=== PATIENT | female | born 1945 | race Caucasian/White ===

== ENCOUNTER → 2016-05-22 | Outpatient (CLI) | payer MEDICARE, BC | LOC: MW.CHPM 08:00 | PROVIDERS: ATTEND Anesthesiology | DX: G89.4 Chronic pain syndrome (principal); M54.2 Cervicalgia; M50.30 Other cervical disc degeneration, unspecified cervical region; M12.88 Other specific arthropathies, not elsewhere classified, other specified site | CPT/HCPCS: 99214 ==

== ENCOUNTER → 2016-06-11 | Outpatient (CLI) | payer MEDICARE, BC | LOC: MW.CHPS 08:00 | PROVIDERS: ATTEND Plastic Surgery | DX: L82.0 Inflamed seborrheic keratosis (principal); L91.8 Other hypertrophic disorders of the skin | CPT/HCPCS: 11200; 17110 ==

== ENCOUNTER → 2016-07-11 | Outpatient (CLI) | payer MEDICARE, BC ==
--- NOTE | 2016-07-12 20:30 | CR ---
EXAM DATE: 07/11/16 PATIENT'S AGE: 71 Patient: FILIBERTO READ Facility: [place], [place] Site . Site : 1945 Study: XRay Spine Cervical [id number] 10:27:20 AM Ordering Physician: Moises Ennis Final Report: HISTORY: Cervicalgia. Technique: Three views of the cervical spine. Comparison: 04/16/2016. Findings: The dens is grossly intact. There is degenerative disc and joint disease within the cervical spine. There is no acute cervical fracture. Mild anterolisthesis of C3 on C4 like relates to facet joint arthrosis. This finding appears increased from the prior examination. Prevertebral soft tissues within normal limits. Multilevel loss of intervertebral disc height as before. Impression: 1. Degenerative disc and joint disease within the cervical spine. 2. No acute fracture. 3. Mild anterolisthesis of C3 on C4 likely relates to facet joint arthrosis with increase in this listhesis as compared to the prior examination. Dictated by Anthony Townsend MD @ Jul 12 2016 12:41PM (Electronic Signature) Report Signed by Proxy. DONTE
== END ==
LOC: MW.CHFP 16:26
PROVIDERS: ATTEND Emergency Medicine
DX: M54.2 Cervicalgia (principal); M50.30 Other cervical disc degeneration, unspecified cervical region
CPT/HCPCS: 72040; 72040-26

== ENCOUNTER → 2016-07-16 | Outpatient (CLI) | payer MEDICARE, BC | LOC: MW.CHPS 08:00 | PROVIDERS: ATTEND Plastic Surgery | DX: T81.89XA Other complications of procedures, not elsewhere classified, initial encounter (principal) | CPT/HCPCS: G0463 ==

== ENCOUNTER 2017-02-10 16:47 | Emergency (ER) | payer MEDICARE, BC ==
[2017-02-10 17:41] VITALS: BP 147/79
--- NOTE | 2017-02-10 19:29 | EDM.PDOC ---
ED HPI GENERAL MEDICAL PROBLEM - General Chief Complaint: Lower Extremity Injury/Pain Stated Complaint: POSSIBLE BLOOD CLOT LT LEG Time Seen by Provider: 02/10/17 19:15 - History of Present Illness INITIAL COMMENTS - FREE TEXT/NARRATIVE: HISTORY AND PHYSICAL: History of present illness: The patient is a 71-year-old female with a history of hypertension and pulmonary disease who had bilateral knee replacements 15 years ago and presents with pain in her left calf that has been ongoing for the last month that seems to worsen over the last 24 hours. She has not noticed any redness but says that she has intermittent swelling of her foot on that side but not her calf. She has had no trauma to the area has no neurosensory changes or weakness in the leg. She has not noticed any skin changes or lesions. She has no systemic complaints of fever chills chest pain or shortness of breath. Patient is here because of concern of DVT. The patient does have an appointment tomorrow with a provider in our clinic Review of systems: As per history of present illness and below otherwise all systems reviewed and negative. Past medical history: As per history of present illness and as reviewed below otherwise noncontributory. Surgical history: As per history of present illness and as reviewed below otherwise noncontributory. Social history: No reported history of drug or alcohol abuse. Family history: As per history of present illness and as reviewed below otherwise noncontributory. Physical exam: Gen.: Well-developed well-nourished female was nontoxic speaking clearly and easily and in no distress HEENT: Atraumatic, normocephalic, negative for conjunctival pallor or scleral icterus, mucous membranes moist, throat clear, neck supple, nontender, trachea midline. Lungs: Clear to auscultation, breath sounds equal bilaterally, chest nontender. Heart: S1S2, regular rate and rhythm rhythm no overt murmurs Abdomen: Soft, nondistended, nontender. NABS Pelvis: Stable nontender. Genitourinary: Deferred. Rectal: Deferred. Extremities: Atraumatic, negative for cords or calf pain. Neurovascular unremarkable. There is no leg size discrepancy and no evidence of pedal edema redness erythema or ecchymosis to the left lower extremity. The patient is able to dorsi and plantar flex without discomfort and there is no deep tenderness when I palpate the left calf Neuro: Awake, alert, oriented. Cranial nerves II through XII unremarkable. Cerebellum unremarkable. Motor and sensory unremarkable throughout. Exam nonfocal. Diagnostics: Doppler ultrasound of left leg Therapeutics: Patient declined pain medication at this time Impression: Left leg pain Definitive disposition and diagnosis as appropriate pending reevaluation and review of above. left leg Pain Score (Numeric/FACES): 4 - Related Data Allergies Allergy/AdvReac Type Severity Reaction Status Date / Time diphenhydramine HCl Allergy Cannot Verified 02/10/17 17:19 [From Benadryl] Remember morphine Allergy Cannot Verified 02/10/17 17:19 Remember oxycodone [Oxycodone] Allergy Cannot Verified 02/10/17 17:19 Remember tramadol Allergy Cannot Verified 02/10/17 17:19 Remember Home Meds: Home Meds ALPRAZolam [Alprazolam ODT] 0.5 mg PO BEDTIME 02/10/17 [History] Albuterol Sulfate [Proair Respiclick] 90 mcg IH ASDIRECTED 02/10/17 [History] Fluticasone Propionate [Flovent HFA 110 MCG] 110 mcg IH BID 02/10/17 [History] Metoprolol Succinate 25 mg PO DAILY 02/10/17 [History] Past Medical History - Past Health History Medical/Surgical History: Denies Medical/Surgical History Cardiovascular History: Reports: Hypertension [employer] History: Reports: Musculoskeletal History: Reports: Back Pain, Chronic - Past Surgical History GI Surgical History: Reports: Cholecystectomy Female Surgical History: Reports: Section Musculoskeletal Surgical History: Reports: Carpal Tunnel, Knee Replacement, Other (See Below) Other Musculoskeletal Surgeries/Procedures:: neck sx Social & Family History - Family History Family Medical History: Noncontributory - Tobacco Use Smoking Status *Q: Never Smoker - Caffeine Use Caffeine Use: Reports: Coffee Caffeine Use Comment: 2 cups daily - Recreational Drug Use Recreational Drug Use: No Review of Systems - Review of Systems Review Of Systems: ROS reveals no pertinent complaints other than HPI. ED EXAM, GENERAL - Physical Exam Exam: See Below (See dictation) Course - Vital Signs Last Recorded V/S: Last Vital Signs Temp 36.4 C 02/10/17 16:47 Pulse 83 02/10/17 16:47 Resp 18 02/10/17 16:47 BP 147/79 H 02/10/17 16:47 Pulse Ox 96 02/10/17 16:47 - Orders/Labs/Meds Orders: Active Orders 24 hr Category Date Time Status Venous Doppler Lwr Ext Lt [US] Stat Exams 02/10/17 19:21 Taken Departure - Departure Time of Disposition: 20:59 Disposition: Home, Self-Care 01 Condition: Good Clinical Impression: Left leg pain - Discharge Information Referrals: Lance De Leon MD [Primary Care Provider] - Forms: ED Department Discharge Additional Instructions: The following information is given to patients seen in the emergency department who are being discharged to home. This information is to outline your options for follow-up care. We provide all patients seen in our emergency department with a follow-up referral. The need for follow-up, as well as the timing and circumstances, are variable depending upon the specifics of your emergency department visit. If you don't have a primary care physician on staff, we will provide you with a referral. We always advise you to contact your personal physician following an emergency department visit to inform them of the circumstance of the visit and for follow-up with them and/or the need for any referrals to a consulting specialist. The emergency department will also refer you to a specialist when appropriate. This referral assures that you have the opportunity for followup care with a specialist. All of these measure are taken in an effort to provide you with optimal care, which includes your followup. Under all circumstances we always encourage you to contact your private physician who remains a resource for coordinating your care. When calling for followup care, please make the office aware that this follow-up is from your recent emergency room visit. If for any reason you are refused follow-up, please contact the [facility] emergency department at and ask to speak to the emergency department charge nurse. [facility] Primary care- Internal [place] [address] Please keep your appointment tomorrow in the clinic for reevaluation and further care of this problem and return to ER as needed as discussed. Use over- the-counter medications for pain as needed. - My Orders Last 24 Hours: My Active Orders 02/10/17 19:21 Venous Doppler Lwr Ext Lt [US] Stat - Assessment/Plan Last 24 Hours: My Active Orders 02/10/17 19:21 Venous Doppler Lwr Ext Lt [US] Stat
--- NOTE | 2017-02-11 09:56 | US ---
EXAM DATE: 02/10/17 PATIENT'S AGE: 71 Patient: FILIBERTO READ Facility: [place], [place] Site . Site : 1945 Study: US Extremity Venous LEFT [id number]/2017 8:39:56 PM Ordering Physician: Dorcas Newsome Final Report: INDICATION: Left calf pain TECHNIQUE: Left lower extremity venous duplex ultrasound was performed using jalloh-scale ultrasound with and without compression and augmentation. Color Doppler and spectral Doppler exam of the lower extremity veins were obtained. COMPARISON: None FINDINGS: Deep veins: The left common femoral, deep femoral, superficial femoral, popliteal, and visualized calf veins are fully compressible and normal response to mechanical augmentation. The Duplex Doppler waveforms are normal in appearance. The visualized contralateral right common femoral vein is unremarkable in appearance. Superficial veins: The visualized greater saphenous and superficial veins of the leg and calf are unremarkable. Soft tissues: No masses or cysts evident. No adenopathy is seen. IMPRESSION: 1. No sonographic evidence of deep venous thrombosis seen. Dictated by: Albert Lopez MD @ 02/10/2017 20:54:22 (Electronic Signature) Report Signed by Proxy. [facility]
== END 2017-02-10 21:25 | disposition home or self-care (01) ==
LOC: MW.ED 16:47
DX: M79.662 Pain in left lower leg (principal); Z88.5 Allergy status to narcotic agent; Z79.899 Other long term (current) drug therapy; I10 Essential (primary) hypertension; Z96.653 Presence of artificial knee joint, bilateral
CPT/HCPCS: 93971-26-LT; 93971-LT; 99283; 99283-25

== ENCOUNTER 2018-04-16 09:28 | Day surgery (SDC) | payer MEDICARE, BC ==
[~2018-04-16 09:28] MED LIST: Lactated Ringers 1,000 ML IV SCH; Lidocaine 2% 5 ML SDV ONE; Propofol 200 MG/20 ML SDV ONE; Sodium Chloride 0.9% 10 ML Syringe FLUSH PRN; Sodium Chloride 0.9% 2.5 ML Syringe FLUSH PRN; fentaNYL 100 MCG/2 ML SDV ONE
--- NOTE | 2018-04-16 10:31 | PCM.PREANE ---
Preanesthetic Assessment - Anesthesia/Transfusion/Family Hx Anesthesia History: Prior Anesthesia Without Reaction (opioid medications: hydromorphone, morphine, and tramadol make her feel "wild and crazy.") Transfusion History: Unknown - Review of Systems General: No Symptoms Pulmonary: No Symptoms Cardiovascular: No Symptoms Gastrointestinal: No Symptoms Neurological: No Symptoms Other: Reports: None - Physical Assessment O2 Sat by Pulse Oximetry: 99 Respiratory Rate: 16 Vital Signs: Last Vital Signs Temp 36.3 C 04/16/18 09:49 Pulse 67 04/16/18 09:49 Resp 16 04/16/18 09:49 BP 134/78 04/16/18 09:49 Pulse Ox 99 04/16/18 09:49 Height: 1.55 m Weight: 73.028 kg ASA Class: 2 Airway Class: Mallampati = 2 Dentition: Reports: Dentures (upper and lower) ROM/Head Extension: Limited/Partial Lungs: Clear to Auscultation, Normal Respiratory Effort Cardiovascular: Regular Rate, Regular Rhythm - Allergies Allergies/Adverse Reactions: Allergies Allergy/AdvReac Type Severity Reaction Status Date / Time adhesive tape Allergy Redness Verified 04/13/18 08:31 amitriptyline Allergy restlessnes Verified 04/13/18 08:28 s cefuroxime Allergy did not Verified 04/13/18 08:31 work clarithromycin Allergy Itching Verified 04/13/18 09:00 diphenhydramine HCl Allergy Agitation Verified 04/13/18 08:31 [From Benadryl] gabapentin Allergy Cannot Verified 04/13/18 07:58 Remember hydromorphone Allergy Rash Verified 04/13/18 08:31 levofloxacin [From Levaquin] Allergy chest Verified 04/13/18 08:31 tightness/diarrhea montelukast Allergy "makes JERONIMO Verified 04/13/18 09:00 more severe" morphine Allergy "makes my Verified 04/13/18 09:00 skin crawl" oxycodone [Oxycodone] Allergy Cannot Verified 04/13/18 07:57 Remember tramadol Allergy rash/itch Verified 04/13/18 09:00 SMZ-TMP Allergy "my body Uncoded 04/13/18 09:00 is resistant to it" - Acknowledgements Anesthesia Type Planned: MAC (The patient understands and accepts the risks and benefits of MAC. All questions answered. She agrees to proceed, and has consented. ) Pt an Appropriate Candidate for the Planned Anesthesia: Yes Alternatives and Risks of Anesthesia Discussed w Pt/Guardian: Yes Pt/Guardian Understands and Agrees with Anesthesia Plan: Yes PreAnesthesia Questionnaire - Past Health History Medical/Surgical History: Denies Medical/Surgical History HEENT History: Reports: Other (See Below) Other HEENT History: wears glasses, top and bottom partial Cardiovascular History: Reports: Hypertension Other Cardiovascular History: varicose veins Respiratory History: Reports: Asthma (took inhaler yesterday) Other Respiratory History: "mild asthma" Gastrointestinal History: Reports: GERD Other Gastrointestinal History: epigastric pain, Genitourinary History: Reports: None Musculoskeletal History: Reports: Back Pain, Chronic, Neck Pain, Chronic, Osteoarthritis, Other (See Below) Other Musculoskeletal History: DDD, RAPHAEL's to neck Neurological History: Reports: Migraines Other Neuro History: restless legs syndrome-states that her left leg has been hurting, but she denies pain today. Psychiatric History: Reports: Anxiety Endocrine/Metabolic History: Reports: Obesity/BMI 30+ Hematologic History: Reports: Other (See Below) Other Hematologic History: transfusion unknown, may have had one after vaginal delivery Oncologic (Cancer) History: Reports: None Dermatologic History: Reports: None - Past Surgical History Head Surgeries/Procedures: Reports: None HEENT Surgical History: Reports: Cataract Surgery, Naso-Sinus Surgery, Oral Surgery, Tonsillectomy Other HEENT Surgeries/Procedures: dental implants GI Surgical History: Reports: Cholecystectomy, Colonoscopy Female Surgical History: Reports: Breast Biopsy, Section, D&C, Hysterectomy Neurological Surgical History: Reports: C-Spine, Other (See Below) Other Neurological Surgeries/Procedures: neck surgery Musculoskeletal Surgical History: Reports: Arthroscopic Knee, Carpal Tunnel, Joint Replacement, Knee Replacement, Shoulder Surgery, Other (See Below) Other Musculoskeletal Surgeries/Procedures:: salvatore knee replacements, salvatore shoulder replacements , Left foot surgery Oncologic Surgical History: Reports: Biopsy of Breast - SUBSTANCE USE Smoking Status *Q: Never Smoker Tobacco Use Within Last Twelve Months: Other (See Below) (etoh "rare") Recreational Drug Use History: No - HOME MEDS Home Medications: Home Meds Metoprolol Succinate 25 mg PO BEDTIME 02/10/17 [History] Acetaminophen [Tylenol] 1 - 2 tab PO ASDIRECTED PRN 04/13/18 [History] Acetaminophen with Codeine [Acetaminophen-Cod #3] 1 - 2 tab PO ASDIRECTED PRN [History] Albuterol [Ventolin HFA] 1 - 2 puff INH ASDIRECTED PRN 04/13/18 [History] Ascorbate Calcium [Vitamin C] 500 mg PO DAILY 04/13/18 [History] Aspirin 2 tab PO ASDIRECTED PRN 04/13/18 [History] Baclofen 0.5 - 1 tab PO TID PRN 04/13/18 [History] Budesonide/Formoterol Fumarate [Symbicort 160-4.5 Mcg Inhaler] 1 puff INH BID PRN 04/13/18 [History] Calcium Carbonate/Vitamin D3 [Calcium 600-Vit D3 800 Tab] 1 tab PO DAILY [History] Cholecalciferol (Vitamin D3) [Vitamin D3] 1,000 units PO DAILY 04/13/18 [History ] Cranberry Conc/Ascorbic Acid [Cranberry Plus Vitamin C Sftgl] 1 tab PO DAILY 01/19 [History] Diclofenac Sodium [Voltaren 1% Gel] 1 applic TOP ASDIRECTED PRN 04/13/18 [ History] Gelatin 600 mg PO ASDIRECTED 04/13/18 [History] Gluc HCl/Csa/Jesus Hy/Hyalur Ac [Glucosamine Chondroitin] 1 tab PO DAILY [History] Magnesium Oxide 250 mg PO DAILY 04/13/18 [History] Melatonin 5 mg PO BEDTIME 04/13/18 [History] Multivitamin [Multivitamins] 1 tab PO DAILY 04/13/18 [History] Potassium Gluconate [Potassium] 1 tab PO DAILY 04/13/18 [History] Ranitidine HCl 150 mg PO BID 04/13/18 [History] Simethicone [Phazyme] 1 tab PO ASDIRECTED PRN 04/13/18 [History] Sucralfate 1 gm PO TIDMEALS 04/13/18 [History] Turmeric Root Extract [Turmeric Curcumin] 1 tab PO DAILY 04/13/18 [History] Vitamin B Complex 1 tab PO DAILY 04/13/18 [History] Zinc Gluconate [Zinc] 50 mg PO DAILY 04/13/18 [History] clonazePAM [Clonazepam] 1 mg PO BEDTIME PRN 04/13/18 [History] rOPINIRole [Requip] 0.5 mg PO BEDTIME 04/13/18 [History] - CURRENT (IN HOUSE) MEDS Current Meds: Current Medications Lactated Ringer's (Ringers, Lactated) 1,000 mls @ 125 mls/hr IV ASDIRECTED ROSIE Last Admin: 04/16/18 09:59 Dose: 125 mls/hr Sodium Chloride (Saline Flush) 10 ml FLUSH ASDIRECTED PRN PRN Reason: Keep Vein Open Sodium Chloride (Saline Flush) 2.5 ml FLUSH ASDIRECTED PRN PRN Reason: Keep Vein Open Discontinued Medications Fentanyl (Sublimaze) Confirm Administered Dose 100 mcg .ROUTE .STK-MED ONE Stop: 04/16/18 07:38 Lidocaine (Xylocaine-Mpf 2%) Confirm Administered Dose 5 ml .ROUTE .STK-MED ONE Stop: 04/16/18 07:38 Propofol (Diprivan 20 Ml) Confirm Administered Dose 400 mg .ROUTE .STK-MED ONE Stop: 04/16/18 07:38
--- NOTE | 2018-04-16 11:44 | PCM.OPNOTE ---
- General Post-Op/Procedure Note Date of Surgery/Procedure: 04/16/18 Operative Procedure(s): EGD with biopsy Findings: Dilated and somewhat tortuous esophagus but no evidence of inflammation Pre Op Diagnosis: Reflux Post-Op Diagnosis: Same Anesthesia Technique: MAC Condition: Good
--- NOTE | 2018-04-16 12:01 | PCM.POSTAN ---
POST ANESTHESIA ASSESSMENT - MENTAL STATUS Mental Status: Alert, Oriented - RESPIRATORY Respiratory Status: Respiratory Rate WNL, Airway Patent, O2 Saturation Stable - CARDIOVASCULAR CV Status: Pulse Rate WNL, Blood Pressure Stable - GASTROINTESTINAL GI Status: No Symptoms - POST OP HYDRATION Hydration Status: Adequate & Stable - OBSERVATIONS Free Text/Narrative:: The patient tolerated the procedure well. there were no apparent anesthetic complications at this time. discharge home per criteria.
--- NOTE | 2018-04-16 12:24 | PCM48HPAN ---
Post Anesthesia Note - EVALUATION WITHIN 48HRS OF ANESTHETIC Vital Signs in Normal Range: Yes Patient Participated in Evaluation: Yes Respiratory Function Stable: Yes Airway Patent: Yes Cardiovascular Function Stable: Yes Hydration Status Stable: Yes Pain Control Satisfactory: Yes Nausea and Vomiting Control Satisfactory: Yes Mental Status Recovered: Yes Resp Rate: 14 - COMMENTS/OBSERVATIONS Free Text/Narrative:: The patient tolerated the procedure well. Has no complaints at this time. Smiling and wishing everyone a "Happy Harper's Day". Discharge home per criteria.
[2018-04-16 12:59] VITALS: BP 131/88
--- NOTE | 2018-04-17 13:52 | OR ---
SURGEON: DANNA GUARDADO MD DATE OF PROCEDURE: 04/16/2018 PREOPERATIVE DIAGNOSIS: Heartburn. POSTOPERATIVE DIAGNOSIS: Heartburn. PROCEDURE PERFORMED: Diagnostic EGD. ANESTHESIA: MAC. INSTRUMENT USED: Olympus endoscope. EXTENT OF EXAM: Second portion of the duodenum. PREPARATION: Good. LIMITATIONS: None. INDICATION FOR EXAMINATION: The patient is a 72-year-old female who presents with ongoing issues of heartburn. I switched her to Zantac and her symptoms are better, but she continues to have breakthrough intermittently. After discussion of all her options, she decided to proceed with a diagnostic EGD. I explained the procedure, expected perioperative course, and risks including bleeding, infection, or damage to surrounding structures including perforation. The patient verbalized understanding and wishes to proceed. PROCEDURE IN DETAIL: The patient was brought into the endoscopy suite and placed in a beach chair position. A time-out was completed verifying the patient's name, age, date of , allergies, and procedure to be performed. A bite-block was placed in the patient's mouth. Monitored anesthesia care was induced and continuous oxygen was provided via nasal cannula throughout the procedure. After adequate sedation was achieved, a well-lubricated endoscope was placed in the patient's mouth and advanced under direct visualization to the second portion of the duodenum. This appeared normal and a photograph was taken. The scope was then straightened out and fully withdrawn while examining the color, texture, anatomy, and integrity of the mucosa of the upper GI tract. The duodenum appeared normal. The scope was brought into the stomach and a photograph was taken of the pylorus and GE junction, which both appeared anatomically normal. Biopsies were taken of the gastric antrum, body, and fundus and sent for histologic review and H. pylori testing. The gastric mucosa overall appeared normal. The scope was then brought into the distal esophagus and a photograph taken of the Z-line. This appeared normal. A biopsy was taken above the GE junction and sent to pathology, labeled as esophagus. The remainder of the esophagus appeared mildly dilated and tortuous, but otherwise appeared normal. The scope was removed and the procedure terminated. The patient tolerated the procedure well and taken to the PACU in stable condition. ENDOSCOPIC DIAGNOSIS: Grossly normal EGD. RECOMMENDATIONS: Given the slightly dilated appearance of the esophagus, I will have the patient perform an esophagram. I will visit with her in clinic in 2 weeks to discuss the Pathology results and schedule this procedure. CANDICE / GLYNN /[id number]
== END 2018-04-16 12:53 | disposition home or self-care (01) ==
LOC: MW.SDS 09:28
PROVIDERS: ATTEND Surgery
DX: K21.9 Gastro-esophageal reflux disease without esophagitis (principal); K20.9 Esophagitis, unspecified; K29.50 Unspecified chronic gastritis without bleeding; J45.909 Unspecified asthma, uncomplicated; I10 Essential (primary) hypertension; E66.9 Obesity, unspecified; Z68.30 Body mass index [BMI] 30.0-30.9, adult; F41.9 Anxiety disorder, unspecified; Z79.899 Other long term (current) drug therapy; Z88.8 Allergy status to other drugs, medicaments and biological substances; Z88.1 Allergy status to other antibiotic agents; Z88.5 Allergy status to narcotic agent
CPT/HCPCS: 43239; J2001; J2704; J7120; 88305; 88312; J3010

== ENCOUNTER 2018-10-02 15:38 | Emergency (ER) | payer MEDICARE, BC ==
[2018-10-02 16:14] VITALS: BP 151/80; PULSE 65
--- NOTE | 2018-10-02 16:29 | EDM.PDOC ---
ED HPI GENERAL MEDICAL PROBLEM - General Chief Complaint: General Stated Complaint: BROKEN RIB Time Seen by Provider: 10/02/18 16:27 - History of Present Illness INITIAL COMMENTS - FREE TEXT/NARRATIVE: HISTORY AND PHYSICAL: History of present illness: The patient is a 73-year-old female who presents with complaints of left sided rib pain after a fall 4 days ago. The patient says that she was walking on some landscaping material in the garden and fell forward and had her arms outstretched but still managed to hit her left forehead and bend her glasses but she did not pass out or blackout. She says she had a small bruise and abrasion on her left for head and at the left nasal bridge but she had no nausea vomiting headache or neck pain. She said that initially she felt some discomfort in bilateral upper extremities but not in a bony way more intermuscular way. Right after the fall she noticed some discomfort at her left rib area but she did not land on the area or directly impact that area. Since that time she has had more pain with movement and has been trying acetaminophen with codeine that she has at home for her chronic back pain and it has helped. She has no numbness or weakness in her upper extremities no lower extremity complaints and no abdominal pain nausea or vomiting and no midline neck or back pain. Review of systems: As per history of present illness and below otherwise all systems reviewed and negative. Past medical history: As per history of present illness and as reviewed below otherwise noncontributory. Surgical history: As per history of present illness and as reviewed below otherwise noncontributory. Social history: No reported history of drug or alcohol abuse. Family history: As per history of present illness and as reviewed below otherwise noncontributory. Physical exam: General: Well-developed well-nourished female who is nontoxic and vital signs are noted by me HEENT: Atraumatic separate for a small area of soft tissue swelling and abrasion at her left for head near her hairline and a very professional scratch at the left nasal bridge without bony defects or deformities, normocephalic, pupils reactive, negative for conjunctival pallor or scleral icterus, mucous membranes moist, throat clear, neck supple, nontender, trachea midline. There are no midline step-offs tenderness defects of the cervical spine Lungs: Clear to auscultation, breath sounds equal bilaterally, chest wall with some reproducible mild tenderness with palpation of the anterior left ribs underneath the left breast without defects deformities or crepitus Heart: S1S2, regular rate and rhythm no overt murmurs Abdomen: Soft, nondistended, there is no tenderness in the abdomen on palpation more specifically in the left upper quadrant and there is no rebound guarding, bowel sounds are normoactive Negative for masses or hepatosplenomegaly. Negative for costovertebral tenderness. Pelvis: Stable nontender. Genitourinary: Deferred. Rectal: Deferred. Extremities: Atraumatic, negative for cords or calf pain. Neurovascular unremarkable. On palpation of the upper extremities there is no bony defects or deformities and there is no discrete soft tissue swelling or specific area of tenderness. Full range of motion Neuro: Awake, alert, oriented. Cranial nerves II through XII unremarkable. Cerebellum unremarkable. Motor and sensory unremarkable throughout. Exam nonfocal. Back: There are no midline step-offs in his defects of the thoracic or lumbar spine no posterior rib or pelvis tenderness Diagnostics: X-ray left ribs with chest Therapeutics: Toradol 30 mg IM Impression: Fall subacute with musculoskeletal pain and left rib/chest wall pain Definitive disposition and diagnosis as appropriate pending reevaluation and review of above. Left Chest Pain Score (Numeric/FACES): 2 - Related Data Allergies Allergy/AdvReac Type Severity Reaction Status Date / Time adhesive tape Allergy Redness Verified 10/02/18 16:14 amitriptyline Allergy restlessnes Verified 10/02/18 16:14 s cefuroxime Allergy did not Verified 10/02/18 16:14 work clarithromycin Allergy Itching Verified 10/02/18 16:14 diphenhydramine HCl Allergy Agitation Verified 10/02/18 16:14 [From Benadryl] gabapentin Allergy Cannot Verified 10/02/18 16:14 Remember hydromorphone Allergy Rash Verified 10/02/18 16:14 levofloxacin [From Levaquin] Allergy chest Verified 10/02/18 16:14 tightness/diarrhea montelukast Allergy "makes JERONIMO Verified 10/02/18 16:14 more severe" morphine Allergy "makes my Verified 10/02/18 16:14 skin crawl" oxycodone [Oxycodone] Allergy Cannot Verified 10/02/18 16:14 Remember tramadol Allergy rash/itch Verified 10/02/18 16:14 [id number] Allergy "my body Uncoded 10/02/18 16:14 is resistant to it" Home Meds: Home Meds Metoprolol Succinate 25 mg PO BEDTIME 02/10/17 [History] Acetaminophen [Tylenol] 1 - 2 tab PO ASDIRECTED PRN 04/13/18 [History] Acetaminophen with Codeine [Acetaminophen-Cod #3] 1 - 2 tab PO ASDIRECTED PRN [History] Albuterol [Ventolin HFA] 1 - 2 puff INH ASDIRECTED PRN 04/13/18 [History] Ascorbate Calcium [Vitamin C] 500 mg PO DAILY 04/13/18 [History] Aspirin 2 tab PO ASDIRECTED PRN 04/13/18 [History] Baclofen 1.5 - 3 tab PO DAILY PRN 04/13/18 [History] Budesonide/Formoterol Fumarate [Symbicort 160-4.5 Mcg Inhaler] 1 puff INH BID PRN 04/13/18 [History] Calcium Carbonate/Vitamin D3 [Calcium 600-Vit D3 800 Tab] 1 tab PO DAILY [History] Cholecalciferol (Vitamin D3) [Vitamin D3] 1,000 units PO DAILY 04/13/18 [History ] Cranberry Conc/Ascorbic Acid [Cranberry Plus Vitamin C Sftgl] 1 tab PO DAILY 01/19 [History] Diclofenac Sodium [Voltaren 1% Gel] 1 applic TOP ASDIRECTED PRN 04/13/18 [ History] Gelatin 600 mg PO ASDIRECTED 04/13/18 [History] Gluc HCl/Csa/Jesus Hy/Hyalur Ac [Glucosamine Chondroitin] 1 tab PO DAILY [History] Magnesium Oxide 250 mg PO DAILY 04/13/18 [History] Melatonin 5 mg PO BEDTIME 04/13/18 [History] Multivitamin [Multivitamins] 1 tab PO DAILY 04/13/18 [History] Potassium Gluconate [Potassium] 1 tab PO DAILY 04/13/18 [History] Ranitidine HCl 150 mg PO BID 04/13/18 [History] Simethicone [Phazyme] 1 tab PO ASDIRECTED PRN 04/13/18 [History] Sucralfate 1 gm PO TIDMEALS 04/13/18 [History] Turmeric Root Extract [Turmeric Curcumin] 1 tab PO DAILY 04/13/18 [History] Vitamin B Complex 1 tab PO DAILY 04/13/18 [History] Zinc Gluconate [Zinc] 50 mg PO DAILY 04/13/18 [History] clonazePAM [Clonazepam] 1 mg PO BEDTIME PRN 04/13/18 [History] rOPINIRole [Requip] 0.5 mg PO BEDTIME 04/13/18 [History] Past Medical History - Past Health History Medical/Surgical History: Denies Medical/Surgical History HEENT History: Reports: Other (See Below) Other HEENT History: wears glasses, top and bottom partial Cardiovascular History: Reports: Hypertension Other Cardiovascular History: varicose veins Respiratory History: Reports: Asthma Other Respiratory History: "mild asthma" Gastrointestinal History: Reports: GERD Other Gastrointestinal History: epigastric pain, Genitourinary History: Reports: None [employer] History: Reports: Musculoskeletal History: Reports: Back Pain, Chronic, Neck Pain, Chronic, Osteoarthritis, Other (See Below) Other Musculoskeletal History: DDD, RAPHAEL's to neck Neurological History: Reports: Migraines Other Neuro History: restless legs syndrome-states that her left leg has been hurting, but she denies pain today. Psychiatric History: Reports: Anxiety Endocrine/Metabolic History: Reports: Obesity/BMI 30+ Hematologic History: Reports: Other (See Below) Other Hematologic History: transfusion unknown, may have had one after vaginal delivery Oncologic (Cancer) History: Reports: None Dermatologic History: Reports: None - Past Surgical History Head Surgeries/Procedures: Reports: None HEENT Surgical History: Reports: Cataract Surgery, Naso-Sinus Surgery, Oral Surgery, Tonsillectomy Other HEENT Surgeries/Procedures: dental implants GI Surgical History: Reports: Cholecystectomy, Colonoscopy Female Surgical History: Reports: Breast Biopsy, Section, D&C, Hysterectomy Neurological Surgical History: Reports: C-Spine, Other (See Below) Other Neurological Surgeries/Procedures: neck surgery Musculoskeletal Surgical History: Reports: Arthroscopic Knee, Carpal Tunnel, Joint Replacement, Knee Replacement, Shoulder Surgery, Other (See Below) Other Musculoskeletal Surgeries/Procedures:: salvatore knee replacements, salvatore shoulder replacements , Left foot surgery, neck surgery Oncologic Surgical History: Reports: Biopsy of Breast Social & Family History - Family History Family Medical History: Noncontributory - Tobacco Use Smoking Status *Q: Never Smoker - Caffeine Use Caffeine Use: Reports: Coffee Caffeine Use Comment: 2 cups daily - Recreational Drug Use Recreational Drug Use: No ED ROS GENERAL - Review of Systems Review Of Systems: ROS reveals no pertinent complaints other than HPI. ED EXAM, GENERAL - Physical Exam Exam: See Below (See dictation) Course - Vital Signs Last Recorded V/S: Last Vital Signs Temp 36.2 C 10/02/18 16:11 Pulse 65 10/02/18 16:11 Resp 18 10/02/18 16:11 BP 151/80 H 10/02/18 16:11 Pulse Ox 97 10/02/18 16:11 - Orders/Labs/Meds Meds: Medications Discontinued Medications Generic Name Dose Route Start Last Admin Trade Name Shahnaz PRN Reason Stop Dose Admin Ketorolac Tromethamine 30 mg 10/02/18 16:45 10/02/18 16:49 Toradol IM 10/02/18 16:46 30 mg ONETIME ONE Administration Departure - Departure Time of Disposition: 17:19 Disposition: Home, Self-Care 01 Condition: Good Clinical Impression: Left-sided chest wall pain, Musculoskeletal pain - Discharge Information Referrals: PCP,Unknown [Primary Care Provider] - Forms: ED Department Discharge Additional Instructions: The following information is given to patients seen in the emergency department who are being discharged to home. This information is to outline your options for follow-up care. We provide all patients seen in our emergency department with a follow-up referral. The need for follow-up, as well as the timing and circumstances, are variable depending upon the specifics of your emergency department visit. If you don't have a primary care physician on staff, we will provide you with a referral. We always advise you to contact your personal physician following an emergency department visit to inform them of the circumstance of the visit and for follow-up with them and/or the need for any referrals to a consulting specialist. The emergency department will also refer you to a specialist when appropriate. This referral assures that you have the opportunity for followup care with a specialist. All of these measure are taken in an effort to provide you with optimal care, which includes your followup. Under all circumstances we always encourage you to contact your private physician who remains a resource for coordinating your care. When calling for followup care, please make the office aware that this follow-up is from your recent emergency room visit. If for any reason you are refused follow-up, please contact the [facility] emergency department at and ask to speak to the emergency department charge nurse. Primary care- Internal Medicine and Family [address] [address] Use ice alternating with heat to areas of discomfort as you choose and try to add [id number] Aleve/ibuprofen or Motrin to your regimen at home to help with inflammation and pain. Pain and discomfort will improve over the next few days to one week. Please schedule follow-up appointment in the clinic with one of our providers or with your provider for reevaluation and further care Week and return to ER as needed and as discussed
[2018-10-02] MEDS ORDERED: Ketorolac 60 MG/2 ML SDV IM ONE (16:45)
--- NOTE | 2018-10-02 17:03 | CR ---
INDICATION: Left rib pain TECHNIQUE: Chest and four views left ribs COMPARISON: None FINDINGS: Cardiovascular and mediastinum: Normal cardiac size. The aorta is tortuous. Lungs and pleural spaces: Lungs are clear. No sign of infiltrate or mass. No sign of pleural effusion. No pneumothorax. Bones and soft tissues: Detailed oblique images of the left ribs demonstrate no fractures or bone lesions. There is scoliosis of the thoracic spine. Status post bilateral shoulder arthroplasties. IMPRESSION: No rib fracture identified. No pneumothorax. Dictated by Ivanna Dent MD @ Oct 02 2018 5:02PM Signed by Dr. Ivanna Dent @ Oct 02 2018 5:02PM
== END 2018-10-02 17:28 | disposition home or self-care (01) ==
LOC: MW.ED 15:38
DX: S00.01XA Abrasion of scalp, initial encounter (principal); S00.31XA Abrasion of nose, initial encounter; R07.89 Other chest pain; M79.621 Pain in right upper arm; M79.622 Pain in left upper arm; I10 Essential (primary) hypertension; M19.90 Unspecified osteoarthritis, unspecified site; E66.9 Obesity, unspecified; Z68.34 Body mass index [BMI] 34.0-34.9, adult; F41.9 Anxiety disorder, unspecified; Z88.8 Allergy status to other drugs, medicaments and biological substances; Z88.5 Allergy status to narcotic agent; Z88.6 Allergy status to analgesic agent; Z88.1 Allergy status to other antibiotic agents; Z79.810 Long term (current) use of selective estrogen receptor modulators (SERMs); Z79.899 Other long term (current) drug therapy; W19.XXXA Unspecified fall, initial encounter
CPT/HCPCS: 71101; 96372; 99283; J1885

== ENCOUNTER 2019-01-19 15:39 | Emergency (ER) | payer MEDICARE, BC ==
--- NOTE | 2019-01-19 15:56 | EDM.PDOC ---
ED HPI GENERAL MEDICAL PROBLEM - General Chief Complaint: Trauma Stated Complaint: FALL Time Seen by Provider: 01/19/19 15:50 Source of Information: Reports: Patient History Limitations: Reports: No Limitations - History of Present Illness INITIAL COMMENTS - FREE TEXT/NARRATIVE: HISTORY AND PHYSICAL: History of present illness: Patient is a 73-year-old female who presents to the ED today with concern of head injury that occurred approximately 1 hour ago. Patient states she was walking outside and missed a step and fell and hit her forehead. Patient states she is unsure if she lost consciousness. Patient states she does take a daily aspirin. Patient states she is also having left hand pain, right shoulder pain, and right forearm pain. Patient denies fever, chills, chest pain, shortness of breath, or cough. Denies headache, neck stiff ness, change in vision. Denies nausea, vomiting, abdominal pain, diarrhea, constipation, or dysuria. Has not noted any blood in urine or stool. Patient has been eating and drinking appropriately. Review of systems: As per history of present illness and below otherwise all systems reviewed and negative. Past medical history: As per history of present illness and as reviewed below otherwise noncontributory. Surgical history: As per history of present illness and as reviewed below otherwise noncontributory. Social history: See social history for further information Family history: As per history of present illness and as reviewed below otherwise noncontributory. Physical exam: General: Patient is alert, oriented, and in no acute distress. Patient laying comfortably on exam table. HEENT: Atraumatic, normocephalic, pupils equal and reactive bilaterally, negative for conjunctival pallor or scleral icterus, mucous membranes moist, TMs normal bilaterally, throat clear, neck supple, nontender, trachea midline. No drooling or trismus noted. No meningeal signs. No hot potato voice noted. There is a 2-3 cm hematoma of the right forehead. There is also a superficial abrasion of the distal nose without bleeding. Lungs: Clear to auscultation, breath sounds equal bilaterally, chest nontender. Heart: S1S2, regular rate and rhythm without overt murmur Abdomen: Soft, nondistended, nontender. Negative for masses or hepatosplenomegaly. Negative for costovertebral tenderness. Pelvis: Stable nontender. Genitourinary: Deferred. Rectal: Deferred. Skin: See HEENT. Otherwise, Intact, warm, dry. No lesions or rashes noted. Extremities: Negative for cords or calf pain. Neurovascular unremarkable. Left hand is mildly edematous over the 4th digit with limited ROM of the fourth digit due to pain. Patient has full range of motion of the remainder of left upper extremity. Radial pulses grossly intact with capillary refill less than 2 seconds. Patient has complete range of motion of the right upper extremity without pain or difficulty. Radial pulses grossly intact with capillary refill less than 2 seconds of the right upper extremity. Patient has full range of motion of complete bilateral lower extremities without pain or difficulty. dp/ pt intact bilaterally with cap refill <2 seconds. No obvious deformity spine. No step-offs, crepitus, or point tenderness to palpation of the spinous process to complete spine. Neuro: Awake, alert, oriented. Cranial nerves II through XII unremarkable. Cerebellum unremarkable. Motor and sensory unremarkable throughout. Exam nonfocal. Notes: Trauma alert was called upon arrival to the ED. Dr. Hernandez directly involved in patient care. Cervical collar was placed upon arrival to the ED. Discussed the importance for follow-up with the orthopedic provider as well as her primary care provider. Voices understanding and is agreeable to plan of care. Denies any further questions or concerns at this time. Diagnostics: Head CT, cervical spine CT, chest x-ray, pelvic x-ray, shoulder XR, left hand x- ray, right forearm x-ray, CBC, CMP, UA, EKG, troponin, PT/INR Therapeutics: ulnar gutter splint Prescription: None (pain medication offered but patient declines) Impression: Head injury Left proximal phalanx fracture, 4th digit Plan: 1. Rest, ice, elevate the affected extremity. You can apply ice 15 minutes on, 15 minutes off. Leave splint on until follow-up with the orthopedic provider. 2. Tylenol and/or Ibuprofen as directed for pain management or discomfort. 3. Follow up with the Orthopedic provider and primary care provider as discussed. Return to the ED as needed and as discussed. Definitive disposition and diagnosis as appropriate pending reevaluation and review of above. head Pain Score (Numeric/FACES): 9 - Related Data Allergies Allergy/AdvReac Type Severity Reaction Status Date / Time adhesive tape Allergy Redness Verified 01/19/19 15:47 amitriptyline Allergy restlessnes Verified 01/19/19 15:47 s cefuroxime Allergy did not Verified 01/19/19 15:47 work clarithromycin Allergy Itching Verified 01/19/19 15:47 diphenhydramine HCl Allergy Agitation Verified 01/19/19 15:47 [From Benadryl] gabapentin Allergy Cannot Verified 01/19/19 15:47 Remember hydromorphone Allergy Rash Verified 01/19/19 15:47 levofloxacin [From Levaquin] Allergy chest Verified 01/19/19 15:47 tightness/diarrhea montelukast Allergy "makes JERONIMO Verified 01/19/19 15:47 more severe" morphine Allergy "makes my Verified 01/19/19 15:47 skin crawl" oxycodone [Oxycodone] Allergy Cannot Verified 01/19/19 15:47 Remember tramadol Allergy rash/itch Verified 01/19/19 15:47 SMZ-TMP Allergy "my body Uncoded 10/02/18 16:14 is resistant to it" Home Meds: Home Meds Metoprolol Succinate 25 mg PO BID 02/10/17 [History] Acetaminophen [Tylenol] 1 - 2 tab PO ASDIRECTED PRN 04/13/18 [History] Acetaminophen with Codeine [Acetaminophen-Cod #3] 1 - 2 tab PO ASDIRECTED PRN [History] Albuterol [Ventolin HFA] 1 - 2 puff INH ASDIRECTED PRN 04/13/18 [History] Ascorbate Calcium [Vitamin C] 500 mg PO DAILY 04/13/18 [History] Aspirin 1 tab PO ASDIRECTED PRN 04/13/18 [History] Baclofen 1.5 - 3 tab PO DAILY PRN 04/13/18 [History] Calcium Carbonate/Vitamin D3 [Calcium 600-Vit D3 800 Tab] 1 tab PO DAILY [History] Cholecalciferol (Vitamin D3) [Vitamin D3] 1,000 units PO DAILY 04/13/18 [History ] Cranberry Conc/Ascorbic Acid [Cranberry Plus Vitamin C Sftgl] 1 tab PO DAILY 01/19 [History] Diclofenac Sodium [Voltaren 1% Gel] 1 applic TOP ASDIRECTED PRN 04/13/18 [ History] Gelatin 600 mg PO ASDIRECTED 04/13/18 [History] Glucosam/Chond/Collagen/Hyalur [Glucosamine Chondroitin] 1 tab PO DAILY [History] Magnesium Oxide 250 mg PO DAILY 04/13/18 [History] Melatonin 5 mg PO BEDTIME 04/13/18 [History] Multivitamin [Multivitamins] 1 tab PO DAILY 04/13/18 [History] Potassium Gluconate [Potassium] 1 tab PO DAILY 04/13/18 [History] Ranitidine HCl 150 mg PO BID 04/13/18 [History] Simethicone [Phazyme] 1 tab PO ASDIRECTED PRN 04/13/18 [History] Sucralfate 1 gm PO TIDMEALS 04/13/18 [History] Turmeric Root Extract [Turmeric Curcumin] 1 tab PO DAILY 04/13/18 [History] Vitamin B Complex 1 tab PO DAILY 04/13/18 [History] Zinc Gluconate [Zinc] 50 mg PO DAILY 04/13/18 [History] clonazePAM [Clonazepam] 1 mg PO BEDTIME PRN 04/13/18 [History] rOPINIRole [Requip] 0.5 mg PO BEDTIME 04/13/18 [History] Past Medical History - Past Health History Medical/Surgical History: Denies Medical/Surgical History HEENT History: Reports: Other (See Below) Other HEENT History: wears glasses, top and bottom partial Cardiovascular History: Reports: Hypertension Other Cardiovascular History: varicose veins Respiratory History: Reports: Asthma Other Respiratory History: "mild asthma" Gastrointestinal History: Reports: GERD Other Gastrointestinal History: epigastric pain, Genitourinary History: Reports: None 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 Psychiatric History: Reports: Anxiety Endocrine/Metabolic History: Reports: Obesity/BMI 30+ Hematologic History: Reports: Other (See Below) Other Hematologic History: transfusion unknown, may have had one after vaginal delivery Oncologic (Cancer) History: Reports: None Dermatologic History: Reports: None - Past Surgical History Head Surgeries/Procedures: Reports: None HEENT Surgical History: Reports: Cataract Surgery, Naso-Sinus Surgery, Oral Surgery, Tonsillectomy Other HEENT Surgeries/Procedures: dental implants GI Surgical History: Reports: Cholecystectomy, Colonoscopy Female Surgical History: Reports: Breast Biopsy, Section, D&C, Hysterectomy Neurological Surgical History: Reports: C-Spine, Other (See Below) Other Neurological Surgeries/Procedures: neck surgery Musculoskeletal Surgical History: Reports: Arthroscopic Knee, Carpal Tunnel, Joint Replacement, Knee Replacement, Shoulder Surgery, Other (See Below) Other Musculoskeletal Surgeries/Procedures:: salvatore knee replacements, salvatore shoulder replacements , Left foot surgery, neck surgery Oncologic Surgical History: Reports: Biopsy of Breast Social & Family History - Family History Family Medical History: Noncontributory - Caffeine Use Caffeine Use: Reports: Coffee Caffeine Use Comment: 2 cups daily Review of Systems - Review of Systems Review Of Systems: Comprehensive ROS is negative, except as noted in HPI. ED EXAM, GENERAL - Physical Exam Exam: See Below (See dictation) Course - Vital Signs Last Recorded V/S: Last Vital Signs Temp 96.7 F 01/19/19 15:39 Pulse 71 01/19/19 15:39 Resp 18 01/19/19 15:39 BP 145/89 H 01/19/19 15:39 Pulse Ox 98 01/19/19 15:39 - Orders/Labs/Meds Orders: Active Orders 24 hr Category Date Time Status EKG Documentation Completion [RC] STAT Care 01/19/19 15:51 Active Labs: Laboratory Tests 01/19/19 01/19/19 01/19/19 Range/Units 16:46 17:20 17:20 WBC 5.83 (4.0-11.0) K/uL RBC 4.45 (4.30-5.90) M/uL Hgb 13.0 (12.0-16.0) g/dL Hct 37.8 (36.0-46.0) % MCV 84.9 (80.0-98.0) fL MCH 29.2 (27.0-32.0) pg MCHC 34.4 (31.0-37.0) g/dL RDW Std Deviation 42.1 (28.0-62.0) fl RDW Coeff of Brynn 14 (11.0-15.0) % Plt Count 190 (150-400) K/uL MPV 9.50 (7.40-12.00) fL Neut % (Auto) 63.5 (48.0-80.0) % Lymph % (Auto) 21.6 (16.0-40.0) % Maries % (Auto) 10.3 (0.0-15.0) % Eos % (Auto) 4.3 (0.0-7.0) % Baso % (Auto) 0.3 (0.0-1.5) % Neut # (Auto) 3.7 (1.4-5.7) K/uL Lymph # (Auto) 1.3 (0.6-2.4) K/uL Maries # (Auto) 0.6 (0.0-0.8) K/uL Eos # (Auto) 0.3 (0.0-0.7) K/uL Baso # (Auto) 0.0 (0.0-0.1) K/uL Nucleated RBC % 0.0 /100WBC Nucleated RBCs # 0 K/uL INR 0.99 Sodium (136-145) mmol/L Potassium (3.5-5.1) mmol/L Chloride (98-107) mmol/L Carbon Dioxide (21.0-32.0) mmol/L BUN (7.0-18.0) mg/dL Creatinine (0.6-1.0) mg/dL Est Cr Clr Drug Dosing mL/min Estimated GFR (MDRD) ml/min Glucose (74-106) mg/dL Calcium (8.5-10.1) mg/dL Total Bilirubin (0.2-1.0) mg/dL AST (15-37) IU/L ALT (14-63) IU/L Alkaline Phosphatase (46-116) U/L Troponin I (0.000-0.056) ng/mL Total Protein (6.4-8.2) g/dL Albumin (3.4-5.0) g/dL Globulin (2.6-4.0) g/dL Albumin/Globulin Ratio (0.9-1.6) Urine Color YELLOW Urine Appearance CLEAR Urine pH 7.0 (5.0-8.0) Ur Specific [place] 1.010 (1.001-1.035) Urine Protein NEGATIVE (NEGATIVE) mg/dL Urine Glucose (UA) NEGATIVE (NEGATIVE) mg/dL Urine Ketones NEGATIVE (NEGATIVE) mg/dL Urine Occult Blood NEGATIVE (NEGATIVE) Urine Nitrite NEGATIVE (NEGATIVE) Urine Bilirubin NEGATIVE (NEGATIVE) Urine Urobilinogen 0.2 (<2.0) EU/dL Ur Leukocyte Esterase NEGATIVE (NEGATIVE) 01/19/19 Range/Units 17:20 WBC (4.0-11.0) K/uL RBC (4.30-5.90) M/uL Hgb (12.0-16.0) g/dL Hct (36.0-46.0) % MCV (80.0-98.0) fL MCH (27.0-32.0) pg MCHC (31.0-37.0) g/dL RDW Std Deviation (28.0-62.0) fl RDW Coeff of Brynn (11.0-15.0) % Plt Count (150-400) K/uL MPV (7.40-12.00) fL Neut % (Auto) (48.0-80.0) % Lymph % (Auto) (16.0-40.0) % Maries % (Auto) (0.0-15.0) % Eos % (Auto) (0.0-7.0) % Baso % (Auto) (0.0-1.5) % Neut # (Auto) (1.4-5.7) K/uL Lymph # (Auto) (0.6-2.4) K/uL Maries # (Auto) (0.0-0.8) K/uL Eos # (Auto) (0.0-0.7) K/uL Baso # (Auto) (0.0-0.1) K/uL Nucleated RBC % /100WBC Nucleated RBCs # K/uL INR Sodium 139 (136-145) mmol/L Potassium 3.5 (3.5-5.1) mmol/L Chloride 101 (98-107) mmol/L Carbon Dioxide 29.9 (21.0-32.0) mmol/L BUN 19 H (7.0-18.0) mg/dL Creatinine 0.6 (0.6-1.0) mg/dL Est Cr Clr Drug Dosing 59.09 mL/min Estimated GFR (MDRD) > 60.0 ml/min Glucose 98 (74-106) mg/dL Calcium 9.4 (8.5-10.1) mg/dL Total Bilirubin 0.4 (0.2-1.0) mg/dL AST 21 (15-37) IU/L ALT 24 (14-63) IU/L Alkaline Phosphatase 95 (46-116) U/L Troponin I < 0.050 (0.000-0.056) ng/mL Total Protein 7.8 (6.4-8.2) g/dL Albumin 4.1 (3.4-5.0) g/dL Globulin 3.7 (2.6-4.0) g/dL Albumin/Globulin Ratio 1.1 (0.9-1.6) Urine Color Urine Appearance Urine pH (5.0-8.0) Ur Specific [place] (1.001-1.035) Urine Protein (NEGATIVE) mg/dL Urine Glucose (UA) (NEGATIVE) mg/dL Urine Ketones (NEGATIVE) mg/dL Urine Occult Blood (NEGATIVE) Urine Nitrite (NEGATIVE) Urine Bilirubin (NEGATIVE) Urine Urobilinogen (<2.0) EU/dL Ur Leukocyte Esterase (NEGATIVE) Departure - Departure Time of Disposition: 18:17 Disposition: Home, Self-Care 01 Clinical Impression: Head injury Qualifiers: Encounter type: initial encounter Qualified Code(s): S09.90XA - Unspecified injury of head, initial encounter Proximal phalanx fracture of finger Qualifiers: Encounter type: initial encounter Finger: ring finger Fracture type: closed Fracture alignment: nondisplaced Laterality: left Qualified Code(s): S62.645A - Nondisplaced fracture of proximal phalanx of left ring finger, initial encounter for closed fracture - Discharge Information Referrals: Lance De Leon MD [Primary Care Provider] - Forms: ED Department Discharge Additional Instructions: The following information is given to patients seen in the emergency department who are being discharged to home. This information is to outline your options for follow-up care. We provide all patients seen in our emergency department with a follow-up referral. The need for follow-up, as well as the timing and circumstances, are variable depending upon the specifics of your emergency department visit. If you don't have a primary care physician on staff, we will provide you with a referral. We always advise you to contact your personal physician following an emergency department visit to inform them of the circumstance of the visit and for follow-up with them and/or the need for any referrals to a consulting specialist. The emergency department will also refer you to a specialist when appropriate. This referral assures that you have the opportunity for follow-up care with a specialist. All of these measure are taken in an effort to provide you with optimal care, which includes your follow-up. Under all circumstances we always encourage you to contact your private physician who remains a resource for coordinating your care. When calling for follow-up care, please make the office aware that this follow-up is from your recent emergency room visit. If for any reason you are refused follow-up, please contact the [facility] Emergency Department at and asked to speak to the emergency department charge nurse. [facility] [address] [place] [id number] [address] [facility] Professional Building [address], [address] [place] [address] Dr Cole, Orthopedist [facility] [address] [place] [address] Dr Valdez - Dr Johnson - Dr Gomez [facility] [address] [place] [address] [facility] [address] [place] [address] 1. Rest, ice, elevate the affected extremity. You can apply ice 15 minutes on, 15 minutes off. Leave splint on until follow-up with the orthopedic provider. 2. Tylenol and/or Ibuprofen as directed for pain management or discomfort. 3. Follow up with the Orthopedic provider and primary care provider as discussed. Return to the ED as needed and as discussed. - My Orders Last 24 Hours: My Active Orders 01/19/19 15:51 EKG Documentation Completion [RC] STAT - Assessment/Plan Last 24 Hours: My Active Orders 01/19/19 15:51 EKG Documentation Completion [RC] STAT
--- NOTE | 2019-01-19 16:32 | CT ---
EXAM DATE: 01/19/19 PATIENT'S AGE: 73 CT cervical spine Technique: Multiple axial sections were obtained from above C1 inferiorly through the bottom of T4. Reconstructed sagittal and coronal images were obtained. Comparison: No prior cervical spine imaging. Findings: Anterior plate and screws are seen at C3-4 and C4-5. Severe disc space narrowing is noted at C5-6, C6-7 and C7-T1. Moderate to severe disc space narrowing noted at T1-2 through T3-4. Diffuse anterior endplate osteophytes are seen as well as mild diffuse posterior osteophytes. Degenerative change is scattered throughout the apophyseal joints. Slightly abnormal cervical curvature is seen which is felt to be degenerative in etiology. Scattered areas of neural foraminal narrowing or is seen. No fracture is appreciated. No abnormal subluxation is seen. Visualized lung apices are clear. Calcified nodule is seen within the thyroid gland measuring 1.1 cm which is felt to be incidental. No soft tissue abnormalities are otherwise seen within the visualized neck. Impression: 1. Previous surgery. Diffuse degenerative change. 2. Other findings which are believed to be incidental. 3. No acute finding is seen on CT study of the cervical spine. Diagnostic code #[address]
--- NOTE | 2019-01-19 16:34 | CT ---
EXAM DATE: 01/19/19 PATIENT'S AGE: [address] Technique: Multiple axial sections through the brain were obtained. Intravenous contrast was not utilized. Comparison: Prior head CT study of 08/07/06. Findings: Mild soft tissue swelling is seen within the right frontal scalp. Ventricles along with basal cisterns and sulci over the convexities are mildly prominent. No abnormal parenchymal densities are seen. No evidence of intracranial hemorrhage. No midline shift or mass effect is seen. Bone window settings were reviewed which shows no acute calvarial abnormality. No acute paranasal sinus findings are seen. Mastoid sinuses are clear. Impression: 1. Soft tissue swelling within the right frontal scalp. 2. Mild generalized atrophy. 3. No acute intracranial finding is seen. Diagnostic code #2 Report Signed by Proxy. DONTE
--- NOTE | 2019-01-19 17:08 | CR ---
Indication: Fall. Technique: An AP view of the pelvis was obtained. Comparison: None Findings: Both femoral heads are seated within the acetabula. Degenerative changes of the lower lumbar spine and both hips are identified. No fracture or subluxation is identified. Impression: Degenerative change. Dictated by Margarita Henriquez MD @ Jan 19 2019 5:07PM Signed by Dr. Margarita Henriquez @ Jan 19 2019 5:08PM
--- NOTE | 2019-01-19 17:08 | CR ---
Indication: Fall. Technique: Three views of the left hand were obtained. Comparison: None Findings: An oblique fracture of the proximal phalanx of the left 4th finger is identified. Degenerative changes are identified throughout the left hand. No other fractures are identified. Impression: Fracture the proximal phalanx of the left 4th finger Dictated by Margarita Henriquez MD @ Jan 19 2019 5:05PM Signed by Dr. Margarita Henriquez @ Jan 19 2019 5:06PM
--- NOTE | 2019-01-19 17:08 | CR ---
Indication: Fall. Technique: Two views of the right forearm were obtained. Comparison: None Findings: Degenerative changes of the wrist and the elbow are identified. No acute fracture or subluxation is identified. Impression: No acute fracture. Dictated by Margarita Henriquez MD @ Jan 19 2019 5:06PM Signed by Dr. Margarita Henriquez @ Jan 19 2019 5:07PM
--- NOTE | 2019-01-19 17:10 | CR ---
Indication: Fall Technique: Chest 1 view Comparison: None Findings/Impression: Normal cardiac size. Tortuous aorta. Normal pulmonary vasculature. Scattered pulmonary nodules may be secondary to calcified granulomata. No pneumothorax or effusion. Status post bilateral reverse shoulder arthroplasties. Mild dextroscoliosis of the lower thoracic spine. Surgical clips in the right upper quadrant. No acute fracture. Dictated by Ivanna Dent MD @ Jan 19 2019 5:09PM Signed by Dr. Ivanna Dent @ Jan 19 2019 5:09PM
--- NOTE | 2019-01-19 17:15 | CR ---
Indication: Fall Technique: Three views right shoulder Comparison: None Findings/impression: Note that the shoulder images are currently in the chest radiograph folder from the same date. Status post reverse right shoulder arthroplasty. No hardware complication, fracture, or subluxation identified. Calcified granulomata in the right lung. Plate and screw hardware in the lower cervical spine. Dictated by Ivanna Dent MD @ Jan 19 2019 5:12PM Signed by Dr. Ivanna Dent @ Jan 19 2019 5:12PM
[2019-01-19 18:01] LABS: BLOOD UREA NITROGEN,BUN 19 mg/dL (7.0-18.0); CARBON DIOXIDE,CO2 29.9 mmol/L (21.0-32.0); CHLORIDE,CL 101 mmol/L (98-107); GLUCOSE RANDOM 98 mg/dL (74-106); POTASSIUM,K 3.5 mmol/L (3.5-5.1); SODIUM,NA 139 mmol/L (136-145)
[2019-01-19 18:42] VITALS: BP 145/79; PULSE 77
== END 2019-01-19 18:37 | disposition home or self-care (01) ==
LOC: MW.ED 15:39
DX: S09.90XA Unspecified injury of head, initial encounter (principal); S62.645A Nondisplaced fracture of proximal phalanx of left ring finger, initial encounter for closed fracture; S00.83XA Contusion of other part of head, initial encounter; S00.31XA Abrasion of nose, initial encounter; I10 Essential (primary) hypertension; J45.909 Unspecified asthma, uncomplicated; F41.9 Anxiety disorder, unspecified; E66.9 Obesity, unspecified; Z68.34 Body mass index [BMI] 34.0-34.9, adult; Z91.09 Other allergy status, other than to drugs and biological substances; Z88.8 Allergy status to other drugs, medicaments and biological substances; Z88.1 Allergy status to other antibiotic agents; Z88.5 Allergy status to narcotic agent; Z88.6 Allergy status to analgesic agent; Z79.82 Long term (current) use of aspirin; Z79.899 Other long term (current) drug therapy; W01.10XA Fall on same level from slipping, tripping and stumbling with subsequent striking against unspecified object, initial encounter; Y92.009 Unspecified place in unspecified non-institutional (private) residence as the place of occurrence of the external cause; Y93.01 Activity, walking, marching and hiking
CPT/HCPCS: 36415; 70450; 70450-26; 71045; 71045-26; 72125; 72125-26; 72170; 72170-26; 73030-26-RT; 73030-RT; 73090-26-RT; 73090-RT; 73130-26-LT; 73130-LT; 80053; 81003; 84484; 85025; 85610; 93005; 99284-25

== ENCOUNTER 2019-03-29 11:06 | Emergency (ER) | payer MEDICARE, BC ==
--- NOTE | 2019-03-29 12:45 | EDM.PDOC ---
ED HPI GENERAL MEDICAL PROBLEM - General Chief Complaint: Upper Extremity Injury/Pain Stated Complaint: FELL LEFT HAND INJURY Time Seen by Provider: 03/29/19 12:41 Source of Information: Reports: Patient - History of Present Illness INITIAL COMMENTS - FREE TEXT/NARRATIVE: HISTORY AND PHYSICAL: History of present illness: [Patient presents post fall landing on her hand, she has history of fracture of the fourth digit on the left, she has bruising and swelling to the lateral hand as well as pain concerning the fourth digit no head injury or loss of consciousness no other pain or injury per patient no fever nausea vomiting chills sweats ] Review of systems: As per history of present illness and below otherwise all systems reviewed and negative. Past medical history: As per history of present illness and as reviewed below otherwise noncontributory. Surgical history: As per history of present illness and as reviewed below otherwise noncontributory. Social history: No reported history of drug or alcohol abuse. Family history: As per history of present illness and as reviewed below otherwise noncontributory. Physical exam: HEENT: Atraumatic, normocephalic, pupils reactive, negative for conjunctival pallor or scleral icterus, mucous membranes moist, throat clear, neck supple, nontender, trachea midline. Lungs: Clear to auscultation, breath sounds equal bilaterally, chest nontender. Heart: S1S2, regular, negative for clicks, rubs, or JVD. Abdomen: Soft, nondistended, nontender. Negative for masses or hepatosplenomegaly. Negative for costovertebral tenderness. Pelvis: Stable nontender. Genitourinary: Deferred. Rectal: Deferred. Extremities: Atraumatic, negative for cords or calf pain. Neurovascular unremarkable. Neuro: Awake, alert, oriented. Cranial nerves II through XII unremarkable. Cerebellum unremarkable. Motor and sensory unremarkable throughout. Exam nonfocal. Diagnostics: [Left hand 3 views ] Therapeutics: [None I will #3 Follow-up with orthopedist] Impression: [Closed fracture left fourth digit] Definitive disposition and diagnosis as appropriate pending reevaluation and review of above. Left Hand Pain Score (Numeric/FACES): 8 - Related Data Allergies Allergy/AdvReac Type Severity Reaction Status Date / Time adhesive tape Allergy Redness Verified 03/29/19 11:45 amitriptyline Allergy restlessnes Verified 03/29/19 11:45 s cefuroxime Allergy did not Verified 03/29/19 11:45 work clarithromycin Allergy Itching Verified 03/29/19 11:45 diphenhydramine HCl Allergy Agitation Verified 03/29/19 11:45 [From Benadryl] gabapentin Allergy Cannot Verified 03/29/19 11:45 Remember hydromorphone Allergy Rash Verified 03/29/19 11:45 levofloxacin [From Levaquin] Allergy chest Verified 03/29/19 11:45 tightness/diarrhea montelukast Allergy "makes JERONIMO Verified 03/29/19 11:45 more severe" morphine Allergy "makes my Verified 03/29/19 11:45 skin crawl" oxycodone [Oxycodone] Allergy Cannot Verified 03/29/19 11:45 Remember tramadol Allergy rash/itch Verified 03/29/19 11:45 [id number]-TMP Allergy "my body Uncoded 03/29/19 11:45 is resistant to it" Home Meds: Home Meds Metoprolol Succinate 50 mg PO DAILY 02/10/17 [History] Acetaminophen [Tylenol] 325 - 650 mg PO Q6H PRN 04/13/18 [History] Acetaminophen with Codeine [Acetaminophen-Cod #3] 1 tab PO Q4H PRN 04/13/18 [ History] Albuterol [Ventolin HFA] 1 - 2 puff INH Q4H PRN 04/13/18 [History] Aspirin 325 mg PO Q4H PRN 04/13/18 [History] Calcium Carbonate/Vitamin D3 [Calcium 600-Vit D3 800 Tab] 500 mg PO TID [History] Cholecalciferol (Vitamin D3) [Vitamin D3] 3,000 units PO DAILY 04/13/18 [History ] Diclofenac Sodium [Voltaren 1% Gel] 1 applic TOP QID PRN 04/13/18 [History] Magnesium Oxide 400 mg PO DAILY 04/13/18 [History] Melatonin 5 mg PO BEDTIME 04/13/18 [History] Multivitamin [Multivitamins] 1 tab PO DAILY 04/13/18 [History] Potassium Gluconate [Potassium] 99 mg PO DAILY 04/13/18 [History] Sucralfate 1 gm PO TIDMEALS 04/13/18 [History] Vitamin B Complex 1 tab PO DAILY 04/13/18 [History] Zinc Gluconate [Zinc] 50 mg PO DAILY 04/13/18 [History] clonazePAM [Clonazepam] 1 mg PO BEDTIME PRN 04/13/18 [History] rOPINIRole [Requip] 0.5 mg PO BEDTIME 04/13/18 [History] Gelatin 2,600 mg PO DAILY 03/29/19 [History] Methyl Salicylate/Menthol [Icy Hot] 1 applic TOP QID PRN 03/29/19 [History] [place]-3 Fatty Acids/Fish Oil [Fish Oil 1,000 mg Softgel] 5,000 unit PO DAILY [History] Omeprazole 40 mg PO DAILY 03/29/19 [History] Past Medical History - Past Health History Medical/Surgical History: Denies Medical/Surgical History HEENT History: Reports: Other (See Below) Other HEENT History: wears glasses, top and bottom partial Cardiovascular History: Reports: Hypertension Other Cardiovascular History: varicose veins Respiratory History: Reports: Asthma Other Respiratory History: "mild asthma" Gastrointestinal History: Reports: GERD Other Gastrointestinal History: epigastric pain, Genitourinary History: Reports: None 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 Psychiatric History: Reports: Anxiety Endocrine/Metabolic History: Reports: Obesity/BMI 30+ Hematologic History: Reports: Other (See Below) Other Hematologic History: transfusion unknown, may have had one after vaginal delivery Immunologic History: Reports: None Oncologic (Cancer) History: Reports: None Dermatologic History: Reports: None - Infectious Disease History Infectious Disease History: Reports: Chicken Pox, Measles, Mumps - Past Surgical History Head Surgeries/Procedures: Reports: None HEENT Surgical History: Reports: Cataract Surgery, Naso-Sinus Surgery, Oral Surgery, Tonsillectomy Other HEENT Surgeries/Procedures: dental implants GI Surgical History: Reports: Cholecystectomy, Colonoscopy Female Surgical History: Reports: Breast Biopsy, Section, D&C, Hysterectomy Neurological Surgical History: Reports: C-Spine, Other (See Below) Other Neurological Surgeries/Procedures: neck surgery Musculoskeletal Surgical History: Reports: Arthroscopic Knee, Carpal Tunnel, Joint Replacement, Knee Replacement, Shoulder Surgery, Other (See Below) Other Musculoskeletal Surgeries/Procedures:: salvatore knee replacements, salvatore shoulder replacements , Left foot surgery, neck surgery Oncologic Surgical History: Reports: Biopsy of Breast Social & Family History - Family History Family Medical History: Noncontributory - Tobacco Use Smoking Status *Q: Never Smoker Second Hand Smoke Exposure: No - Caffeine Use Caffeine Use: Reports: None Caffeine Use Comment: 2 cups daily - Recreational Drug Use Recreational Drug Use: No Review of Systems - Review of Systems Review Of Systems: See Below ED EXAM, GENERAL - Physical Exam Exam: See Below Course - Vital Signs Last Recorded V/S: Last Vital Signs Temp 96.5 F 03/29/19 11:45 Pulse 71 03/29/19 11:45 Resp 16 03/29/19 11:45 BP 149/84 H 03/29/19 11:45 Pulse Ox 97 03/29/19 11:45 - Orders/Labs/Meds Orders: Active Orders 24 hr Category Date Time Status Hand Comp Min 3V Lt [CR] Stat Exams 03/29/19 11:52 Taken Departure - Departure Time of Disposition: 12:43 Disposition: Home, Self-Care 01 Condition: Good Clinical Impression: Proximal phalanx fracture of finger Qualifiers: Encounter type: initial encounter Finger: ring finger Fracture type: closed Fracture alignment: nondisplaced Laterality: left Qualified Code(s): S62.645A - Nondisplaced fracture of proximal phalanx of left ring finger, initial encounter for closed fracture - Discharge Information Referrals: Lance De Leon MD [Primary Care Provider] - Additional Instructions: splint Rest ice T#3 as directed With orthopedist, call phone number below to schedule appropriate follow-up, had mentioned you did have a scheduled follow-up for tomorrow however canceled you may call to reschedule [facility] [address], [address] [place] [address] my orthopedic The following information is given to patients seen in the emergency department who are being discharged to home. This information is to outline your options for follow-up care. We provide all patients seen in our emergency department with a follow-up referral. The need for follow-up, as well as the timing and circumstances, are variable depending upon the specifics of your emergency department visit. If you don't have a primary care physician on staff, we will provide you with a referral. We always advise you to contact your personal physician following an emergency department visit to inform them of the circumstance of the visit and for follow-up with them and/or the need for any referrals to a consulting specialist. The emergency department will also refer you to a specialist when appropriate. This referral assures that you have the opportunity for follow-up care with a specialist. All of these measure are taken in an effort to provide you with optimal care, which includes your follow-up. Under all circumstances we always encourage you to contact your private physician who remains a resource for coordinating your care. When calling for follow-up care, please make the office aware that this follow-up is from your recent emergency room visit. If for any reason you are refused follow-up, please contact the [facility] emergency department at and asked to speak to the emergency department charge nurse. Sepsis Event Note - Evaluation Sepsis Screening Result: No Definite Risk - Focused Exam Vital Signs: Vital Signs Temp Pulse Resp BP Pulse Ox 03/29/19 11:45 96.5 F 71 16 149/84 H 97 Date Exam was Performed: 03/29/19 Time Exam was Performed: 12:41 - My Orders Last 24 Hours: My Active Orders 03/29/19 11:52 Hand Comp Min 3V Lt [CR] Stat - Assessment/Plan Last 24 Hours: My Active Orders 03/29/19 11:52 Hand Comp Min 3V Lt [CR] Stat
[2019-03-29] MEDS ORDERED: Acetaminophen/Codeine 300-30 MG Tab PO ONE (12:49)
--- NOTE | 2019-03-29 12:55 | CR ---
Left hand: 3 views left hand were obtained. Comparison: Previous left finger study of 03/11/19. Stable fracture is identified within the proximal phalanx of the fourth finger. Fracture line is still visible. Alignment is stable. Joint space narrowing is scattered within the MCP, DIP and PIP joints as well as within the CMC joint of the thumb. Chondrocalcinosis is noted within the triangular fibrocartilage. Soft tissue swelling is noted. Mild deformity of the distal fifth metacarpal is seen which is an interval change from prior study and is felt compatible with minimally angulated acute fracture. Impression: 1. Probable slightly angulated and acute distal left fifth metacarpal fracture. 2. Degenerative change as noted above. 3. Stable appearing subacute fracture as noted above. Diagnostic code #3 This report was dictated in [place] Standard Time
[2019-03-29 13:50] VITALS: BP 145/66; PULSE 66
== END 2019-03-29 13:18 | disposition home or self-care (01) ==
LOC: MW.ED 11:06
DX: S62.645A Nondisplaced fracture of proximal phalanx of left ring finger, initial encounter for closed fracture (principal); I10 Essential (primary) hypertension; J45.909 Unspecified asthma, uncomplicated; E66.9 Obesity, unspecified; Z79.899 Other long term (current) drug therapy; Z79.82 Long term (current) use of aspirin; Z88.5 Allergy status to narcotic agent; Z88.1 Allergy status to other antibiotic agents; Z91.09 Other allergy status, other than to drugs and biological substances; Z88.8 Allergy status to other drugs, medicaments and biological substances
CPT/HCPCS: 29125; 73130; 99283; A9270

== ENCOUNTER 2020-07-23 14:53 | Emergency (ER) | payer MEDICARE, BC ==
--- NOTE | 2020-07-23 15:02 | EDM.PDOC ---
ED HPI GENERAL MEDICAL PROBLEM - General Chief Complaint: Headache Stated Complaint: SLURRED SPEACH, HEADACH Time Seen by Provider: 07/23/20 14:59 - History of Present Illness INITIAL COMMENTS - FREE TEXT/NARRATIVE: History of present illness: [] The patient says that today she originally was having a normal day and then she began to substitute words during her speech. She had no problem thinking what to say but when she was having a sentence she said intelligible inappropriate words it did not fit into the context of the symptoms. She realized that after she said it and then tried to correct her self. She also had a transient brief episode when her vision was changed. She said the person she was looking at seem like 1 side of her face was blurry and there was sort of a yellowish color. The patient also has a mild headache. The patient had no such symptoms by the time she arrived here. She is never had such symptoms before. She is never had any regular dosing of any blood thinner. She recently has had some trouble with labile blood pressure and her metoprolol 25 mg has been cut in half. Review of systems: As per history of present illness and below otherwise all systems reviewed and negative. Past medical history: As per history of present illness and as reviewed below otherwise noncontributory. Surgical history: As per history of present illness and as reviewed below otherwise noncontributo ry. Social history: No reported history of drug or alcohol abuse. Family history: As per history of present illness and as reviewed below otherwise noncontributory. Physical exam: Constitutional - well developed, well-nourished and in no acute distress HEENT - normocephalic, no evidence of trauma - external nose and mouth normal - no mass in neck and no JVD - mucosae moist EYES -visual hickman normal by confrontation. Full EOM, PERRL, no icterus - no evidence of inflammation, injection, or drainage Respiratory - no respiratory distress, equal bilateral expansion, lungs clear to auscultation and no abnormal lung sounds Cardiovascular -carotid radical left without bruit. Regular Rhythm with S1 and S2 appreciated and no murmur, gallop or rub. GI - abdomen soft without distension or organomegaly - normal bowel sounds - no guard or rebound Musculoskeletal no gross deformity of long bones or joints - no tenderness, swelling or edema Neurologic - Alert and oriented times four - CN II-XII grossly intact - motor sensory and coordination symmetrically normal Psychiatric - appropriate mood and affect with normal thought content Hematologic - No petechiae or purpura - mucosa appropriate color and sclera not pale - normal nail bed color and refill Integument - no rash or evidence of trauma - normal turgor Diagnostics: [] Therapeutics: [] Impression: [] Plan: [] Definitive disposition and diagnosis as appropriate pending reevaluation and review of above. Anterior Head Pain Score (Numeric/FACES): 7 - Related Data Allergies Allergy/AdvReac Type Severity Reaction Status Date / Time adhesive tape Allergy Redness Verified 07/23/20 14:59 amitriptyline Allergy restlessnes Verified 07/23/20 14:59 s cefuroxime Allergy did not Verified 07/23/20 14:59 work clarithromycin Allergy Itching Verified 07/23/20 14:59 diphenhydramine HCl Allergy Agitation Verified 07/23/20 14:59 [From Benadryl] gabapentin Allergy Cannot Verified 07/23/20 14:59 Remember hydromorphone Allergy Rash Verified 07/23/20 14:59 levofloxacin [From Levaquin] Allergy chest Verified 07/23/20 14:59 tightness/diarrhea montelukast Allergy "makes JERONIMO Verified 07/23/20 14:59 more severe" morphine Allergy "makes my Verified 07/23/20 14:59 skin crawl" oxycodone [Oxycodone] Allergy Cannot Verified 03/29/19 11:45 Remember tramadol Allergy rash/itch Verified 03/29/19 11:45 SMZ-TMP Allergy "my body Uncoded 03/29/19 11:45 is resistant to it" Home Meds: Home Meds Metoprolol Succinate 50 mg PO DAILY 02/10/17 [History] Acetaminophen [Tylenol] 325 - 650 mg PO Q6H PRN 04/13/18 [History] Acetaminophen with Codeine [Acetaminophen-Cod #3] 1 tab PO Q4H PRN 04/13/18 [History] Albuterol [Ventolin HFA] 1 - 2 puff INH Q4H PRN 04/13/18 [History] Aspirin 325 mg PO Q4H PRN 04/13/18 [History] Calcium Carbonate/Vitamin D3 [Calcium 600-Vit D3 800 Tab] 500 mg PO TID 04/13/18 [History] Cholecalciferol (Vitamin D3) [Vitamin D3] 3,000 units PO DAILY 04/13/18 [History] Diclofenac Sodium [Voltaren 1% Gel] 1 applic TOP QID PRN 04/13/18 [History] Magnesium Oxide 400 mg PO DAILY 04/13/18 [History] Melatonin 5 mg PO BEDTIME 04/13/18 [History] Multivitamin [Multivitamins] 1 tab PO DAILY 04/13/18 [History] Potassium Gluconate [Potassium] 99 mg PO DAILY 04/13/18 [History] Sucralfate 1 gm PO TIDMEALS 04/13/18 [History] Vitamin B Complex 1 tab PO DAILY 04/13/18 [History] Zinc Gluconate [Zinc] 50 mg PO DAILY 04/13/18 [History] clonazePAM [Clonazepam] 1 mg PO BEDTIME PRN 04/13/18 [History] rOPINIRole [Requip] 0.5 mg PO BEDTIME 04/13/18 [History] Gelatin 2,600 mg PO DAILY 03/29/19 [History] Methyl Salicylate/Menthol [Icy Hot] 1 applic TOP QID PRN 03/29/19 [History] [place]-3 Fatty Acids/Fish Oil [Fish Oil 1,000 mg Softgel] 5,000 unit PO DAILY 03/29/19 [History] Omeprazole 40 mg PO DAILY 03/29/19 [History] Past Medical History - Past Health History Medical/Surgical History: Denies Medical/Surgical History HEENT History: Reports: Other (See Below) Other HEENT History: wears glasses, top and bottom partial Cardiovascular History: Reports: Hypertension Other Cardiovascular History: varicose veins Respiratory History: Reports: Asthma Other Respiratory History: "mild asthma" Gastrointestinal History: Reports: GERD Other Gastrointestinal History: epigastric pain, Genitourinary History: Reports: None 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 Psychiatric History: Reports: Anxiety Endocrine/Metabolic History: Reports: Obesity/BMI 30+ Hematologic History: Reports: Other (See Below) Other Hematologic History: transfusion unknown, may have had one after vaginal delivery Immunologic History: Reports: None Oncologic (Cancer) History: Reports: None Dermatologic History: Reports: None - Infectious Disease History Infectious Disease History: Reports: Chicken Pox, Measles, Mumps - Past Surgical History Head Surgeries/Procedures: Reports: None HEENT Surgical History: Reports: Cataract Surgery, Naso-Sinus Surgery, Oral Surgery, Tonsillectomy Other HEENT Surgeries/Procedures: dental implants GI Surgical History: Reports: Cholecystectomy, Colonoscopy Female Surgical History: Reports: Breast Biopsy, Section, D&C, Hysterectomy Neurological Surgical History: Reports: C-Spine, Other (See Below) Other Neurological Surgeries/Procedures: neck surgery Musculoskeletal Surgical History: Reports: Arthroscopic Knee, Carpal Tunnel, Joint Replacement, Knee Replacement, Shoulder Surgery, Other (See Below) Other Musculoskeletal Surgeries/Procedures:: salvatore knee replacements, salvatore shoulder replacements , Left foot surgery, neck surgery Oncologic Surgical History: Reports: Biopsy of Breast Social & Family History - Family History Family Medical History: No Pertinent Family History - Caffeine Use Caffeine Use: Reports: None Caffeine Use Comment: 2 cups daily ED ROS GENERAL - Review of Systems Review Of Systems: Comprehensive ROS is negative, except as noted in HPI. ED EXAM, GENERAL - Physical Exam Exam: See Below Free Text/Narrative:: My physical exam is in the HPI #1 Interpretation EKG Interpretation Comments: EKG sinus rhythm heart rate 63 [place] 208 QT duration 438 [place] XX [address] normal T impression normal EKG Course - Vital Signs Text/Narrative:: 1712 hrs. the patient has had what I consider TIA. I discussed with Dr. Hernandez the neurologist in my not. We do not have neurology available today. He said to do a CT angio of the head and neck. If the CT is abnormal in any way to call him back. Disposition will be determined between me him and the patient after the results. If the CT angio was normal he said to put her on a full aspirin every day and have her follow-up locally. The patient offers a history that she is on medicine for hypertension and they have adjusted it recently because it been a little bit difficult to control. She also has edema in her legs. The patient also has a son who has carotid stenosis that is going to get endarterectomy at the [facility]. His case is complicated by the fact that he has had a history of kidney cancer with a nephrectomy and has something wrong with his other kidney function. The patient's son chews tobacco but does not smoke. I consider this patient reasonably high risk for stroke although this may be a variant of migraine. Plan as above. [address] angiogram of both head and neck were accomplished uneventfully and revealed to reveal any significant stenosis in the carotid or occlusion and intracranial vessels. Patient will be discharged on aspirin daily and follow-up locally. Last Recorded V/S: Last Vital Signs Temp 36.2 C 07/23/20 14:59 Pulse 65 07/23/20 18:01 Resp 17 07/23/20 18:01 BP 150/75 H 07/23/20 18:01 Pulse Ox 97 07/23/20 18:01 - Orders/Labs/Meds Orders: Active Orders 24 hr Category Date Time Status EKG Documentation Completion [RC] AM Care 07/23/20 15:18 Active Sodium Chloride 0.9% [Saline Flush] Med 07/23/20 15:18 Active 10 ml FLUSH ASDIRECTED PRN Sodium Chloride 0.9% [Saline Flush] Med 07/23/20 15:18 Active 2.5 ml FLUSH ASDIRECTED PRN Saline Lock Insert [OM.PC] Stat Oth 07/23/20 15:18 Ordered Medication Orders Sodium Chloride (Sodium Chloride 0.9% 10 Ml Syringe) 10 ml FLUSH ASDIRECTED PRN PRN Reason: Keep Vein Open Last Admin: 07/23/20 15:58 Dose: 10 ml Documented by: LESTER Sodium Chloride (Sodium Chloride 0.9% 2.5 Ml Syringe) 2.5 ml FLUSH ASDIRECTED PRN PRN Reason: Keep Vein Open Last Admin: 07/23/20 15:59 Dose: 2.5 ml Documented by: LESTER Labs: Laboratory Tests 07/23/20 07/23/20 Range/Units 15:20 15:20 WBC 5.60 (4.0-11.0) K/uL RBC 4.33 (4.30-5.90) M/uL Hgb 12.7 (12.0-16.0) g/dL Hct 37.8 (36.0-46.0) % MCV 87.3 (80.0-98.0) fL MCH 29.3 (27.0-32.0) pg MCHC 33.6 (31.0-37.0) g/dL RDW Std Deviation 43.2 (28.0-62.0) fl RDW Coeff of Brynn 13 (11.0-15.0) % Plt Count 197 (150-400) K/uL MPV 9.60 (7.40-12.00) fL Neut % (Auto) 57.5 (48.0-80.0) % Lymph % (Auto) 27.5 (16.0-40.0) % [place] % (Auto) 10.5 (0.0-15.0) % Eos % (Auto) 4.1 (0.0-7.0) % Baso % (Auto) 0.4 (0.0-1.5) % Neut # (Auto) 3.2 (1.4-5.7) K/uL Lymph # (Auto) 1.5 (0.6-2.4) K/uL [place] # (Auto) 0.6 (0.0-0.8) K/uL Eos # (Auto) 0.2 (0.0-0.7) K/uL Baso # (Auto) 0.0 (0.0-0.1) K/uL Nucleated RBC % 0.0 /100WBC Nucleated RBCs # 0 K/uL Sodium 136 (136-145) mmol/L Potassium 3.8 (3.5-5.1) mmol/L Chloride 99 (98-107) mmol/L Carbon Dioxide 30.1 (21.0-32.0) mmol/L BUN 14 (7.0-18.0) mg/dL Creatinine 0.9 (0.6-1.0) mg/dL Est Cr Clr Drug Dosing TNP Estimated GFR (MDRD) > 60.0 ml/min Glucose 132 H (74-106) mg/dL Calcium 8.4 L (8.5-10.1) mg/dL Total Bilirubin 0.4 (0.2-1.0) mg/dL AST 22 (15-37) IU/L ALT 29 (14-63) IU/L Alkaline Phosphatase 108 (46-116) U/L Total Protein 7.4 (6.4-8.2) g/dL Albumin 3.6 (3.4-5.0) g/dL Globulin 3.8 (2.6-4.0) g/dL Albumin/Globulin Ratio 0.9 (0.9-1.6) Meds: Medications Generic Name Dose Route Start Last Admin Trade Name Freq PRN Reason Stop Dose Admin Sodium Chloride 10 ml 07/23/20 15:18 07/23/20 15:58 Sodium Chloride 0.9% 10 Ml Syringe FLUSH 10 ml ASDIRECTED PRN Administration Keep Vein Open Sodium Chloride 2.5 ml 07/23/20 15:18 07/23/20 15:59 Sodium Chloride 0.9% 2.5 Ml Syringe FLUSH 2.5 ml ASDIRECTED PRN Administration Keep Vein Open Discontinued Medications Generic Name Dose Route Start Last Admin Trade Name Freq PRN Reason Stop Dose Admin Iopamidol 100 ml 07/23/20 17:30 07/23/20 17:31 Iopamidol 755 Mg/Ml 100 Ml Bottle IVPUSH 07/23/20 17:31 100 ml ONETIME ONE Administration Departure - Departure Time of Disposition: 18:45 Disposition: Home, Self-Care 01 Condition: Good Clinical Impression: Transient ischemic attack - Discharge Information Instructions: Transient Ischemic Attack, [id number] Referrals: Lance De Leon MD [Primary Care Provider] - Forms: ED Department Discharge Additional Instructions: Take 1 aspirin every day just like it was a prescribed medicine. This is the 325 mg variety of 481 mg baby aspirin. Return immediately if you have any loss of speech vision feeling or movement. [facility] - Neurology [address], [address] [place] [address] The following information is given to patients seen in the emergency department who are being discharged to home. This information is to outline your options for follow-up care. We provide all patients seen in our emergency department with a follow-up referral. The need for follow-up, as well as the timing and circumstances, are variable depending upon the specifics of your emergency department visit. If you don't have a primary care physician on staff, we will provide you with a referral. We always advise you to contact your personal physician following an emergency department visit to inform them of the circumstance of the visit and for follow-up with them and/or the need for any referrals to a consulting specialist. The emergency department will also refer you to a specialist when appropriate. This referral assures that you have the opportunity for follow-up care with a specialist. All of these measure are taken in an effort to provide you with optimal care, which includes your follow-up. Under all circumstances we always encourage you to contact your private physician who remains a resource for coordinating your care. When calling for follow-up care, please make the office aware that this follow-up is from your recent emergency room visit. If for any reason you are refused follow-up, please contact the [facility] Emergency Department at and asked to speak to the emergency department charge nurse. Sepsis Event Note (ED) - Focused Exam Vital Signs: Vital Signs Temp Pulse Resp BP Pulse Ox 07/23/20 18:01 65 17 150/75 H 97 07/23/20 15:59 64 170/96 H 07/23/20 14:59 36.2 C 71 18 167/87 H 96 - My Orders Last 24 Hours: My Active Orders 07/23/20 15:18 EKG Documentation Completion [RC] AM Sodium Chloride 0.9% [Saline Flush] 10 ml FLUSH ASDIRECTED PRN Sodium Chloride 0.9% [Saline Flush] 2.5 ml FLUSH ASDIRECTED PRN Saline Lock Insert [OM.PC] Stat - Assessment/Plan Last 24 Hours: My Active Orders 07/23/20 15:18 EKG Documentation Completion [RC] AM Sodium Chloride 0.9% [Saline Flush] 10 ml FLUSH ASDIRECTED PRN Sodium Chloride 0.9% [Saline Flush] 2.5 ml FLUSH ASDIRECTED PRN Saline Lock Insert [OM.PC] Stat
[2020-07-23] MEDS ORDERED: Sodium Chloride 0.9% 10 ML Syringe FLUSH PRN (15:18)
[2020-07-23] MEDS ORDERED: Sodium Chloride 0.9% 2.5 ML Syringe FLUSH PRN (15:18)
[2020-07-23 15:57] LABS: BLOOD UREA NITROGEN,BUN 14 mg/dL (7.0-18.0); CARBON DIOXIDE,CO2 30.1 mmol/L (21.0-32.0); CHLORIDE,CL 99 mmol/L (98-107); GLUCOSE RANDOM 132 mg/dL (74-106); POTASSIUM,K 3.8 mmol/L (3.5-5.1); SODIUM,NA 136 mmol/L (136-145)
--- NOTE | 2020-07-23 16:40 | CT ---
Indication: Possible TIA. Technique: Multiple contiguous axial images were obtained from the skullbase to the vertex without intravenous contrast enhancement. Please note that all CT scans at this facility use dose modulation, iterative reconstruction, and/or weight-based dosing when appropriate to reduce radiation dose to as low as reasonably achievable. Comparison: January 19, 2019. Findings: The ventricles are enlarged consistent with sizes sulci. Confluent areas of low attenuation identified within the periventricular white matter. The basal cisterns are widely patent. No intra-axial or extra-axial hemorrhage is identified. No mass, mass effect or midline shift is seen. The bony calvarium is intact. The visualized paranasal sinuses and mastoid air cells are clear. Impression: No acute intracranial process. Diffuse volume loss. Changes of chronic small vessel ischemia. Please note that all CT scans at this facility use dose modulation, iterative reconstruction, and/or weight-based dosing when appropriate to reduce radiation dose to as low as reasonably achievable. Dictated by Margarita Henriquez MD @ 07/23/2020 4:39:[address] Margarita Henriquez @ Jul 23 2020 4:39PM
--- NOTE | 2020-07-23 16:40 | CR ---
INDICATION: Possible TIA today, dyspnea, history of asthma. TECHNIQUE: Chest 1 view. COMPARISON: Chest radiograph 01/19/2019. FINDINGS: No focal consolidation, pleural effusion, pneumothorax. Minimal opacity in the right lung base may represent atelectasis or subtle infiltrate. Slight linear atelectasis left lower lung. Heart size upper limits of normal. Normal pulmonary vascularity. Tortuous aorta. Thoracolumbar curve. Bilateral shoulder arthroplasties. IMPRESSION: Minimal opacity in the right lung base may represent atelectasis or subtle infiltrate. Dictated by Hermelinda Henson MD @ 07/23/2020 4:38:[address] Hermelinda Henson @ Jul 23 2020 4:38PM
[2020-07-23] MEDS ORDERED: Iopamidol 755 Mg/ML 100 ML Bottle IVPUSH ONE (17:30)
[2020-07-23 18:03] VITALS: BP 150/75; PULSE 65
--- NOTE | 2020-07-23 18:31 | CT ---
DATE: 07/23/2020. CLINICAL HISTORY: Patient with transient ischemic attack. TECHNIQUE: Standard helical CT image acquisition through the head and neck after intravenous contrast bolus enhancement was performed. Multiplanar reconstructed images performed on a separate workstation. COMPARISON: None available. FINDINGS: The origins of the great vessels from the aortic arch are patent. The origins of the right and left vertebral arteries are patent. The common carotid arteries are patent. No significant stenoses at the origins of the proximal internal carotid arteries by NASCET criteria. The more distal cervical segments of the internal carotid arteries are patent. The cervical segments of the vertebral arteries are patent. No intracranial proximal large vessel occlusion or flow-limiting luminal stenosis. The visualized lung apices are unremarkable. Peripherally calcified left thyroid nodule. There are degenerative changes in the cervical spine and postsurgical changes related to prior C3-C5 ACDF. IMPRESSION: 1. No intracranial proximal large vessel occlusion or flow limiting luminal stenosis. 2. Patent cervical arterial vasculature with no hemodynamically significant luminal stenosis. Please note that all CT scans at this facility use dose modulation, iterative reconstruction, and/or weight-based dosing when appropriate to reduce radiation dose to as low as reasonably achievable. Dictated by Misael Garcia MD @ 07/23/2020 8:31:[address] Misael Garcia @ Jul 23 2020 8:31PM
[2020-07-23] MEDS ORDERED: Aspirin 81 MG Tab.Chew PO ONE (18:36)
== END 2020-07-23 19:03 | disposition home or self-care (01) ==
LOC: MW.ED 14:53
DX: G45.9 Transient cerebral ischemic attack, unspecified (principal); I10 Essential (primary) hypertension; J45.909 Unspecified asthma, uncomplicated; K21.9 Gastro-esophageal reflux disease without esophagitis; E66.9 Obesity, unspecified; Z68.30 Body mass index [BMI] 30.0-30.9, adult; Z79.82 Long term (current) use of aspirin; Z79.899 Other long term (current) drug therapy; Z91.018 Allergy to other foods; Z88.5 Allergy status to narcotic agent; Z88.6 Allergy status to analgesic agent; Z88.1 Allergy status to other antibiotic agents
CPT/HCPCS: 36415; 70450; 70496; 70498; 71045; 80053; 85025; 93005; 99285; A9270; Q9967; 93010; 99284

== ENCOUNTER 2020-11-26 22:53 | Emergency (ER) | payer MEDICARE, BC | END 2020-11-26 23:06 | disposition left against medical advice (07) | LOC: MW.ED 22:53 | DX: Z53.21 Procedure and treatment not carried out due to patient leaving prior to being seen by health care provider (principal) ==

== ENCOUNTER 2020-11-27 12:58 | Observation (INO) | payer MEDICARE, BC ==
[2020-11-27] MEDS ORDERED: Sodium Chloride 0.9% 2.5 ML Syringe FLUSH PRN (15:22)
[2020-11-27] MEDS ORDERED: Sodium Chloride 0.9% 10 ML Syringe FLUSH PRN (15:22)
[2020-11-27 16:09] LABS: BLOOD UREA NITROGEN,BUN 14 mg/dL (7.0-18.0); CARBON DIOXIDE,CO2 30.8 mmol/L (21.0-32.0); CHLORIDE,CL 98 mmol/L (98-107); GLUCOSE RANDOM 137 mg/dL (74-106); POTASSIUM,K 3.9 mmol/L (3.5-5.1); SODIUM,NA 135 mmol/L (136-145)
[2020-11-27] MEDS ORDERED: Iopamidol 755 MG/ML 500 ML Multipack Bottle IVPUSH STA (16:46)
--- NOTE | 2020-11-27 17:17 | CT ---
Indication: Abdominal pain, bloody stool Technique: Contrast enhanced axial CT imaging through the abdomen and pelvis. 100 mL Isovue 370 contrast agent was administered intravenously. Sagittal and coronal reconstructions are provided. Comparison: None Findings: There is circumferential colonic wall thickening involving the splenic flexure, descending colon, and proximal to mid sigmoid colon. There is mild surrounding edema with free fluid layering in the left paracolic gutter. No significant wall thickening or inflammatory changes are seen in the distal sigmoid colon and rectum. Diverticulosis is noted in the distal descending and sigmoid colon, however no inflamed diverticula are identified. There is no extraluminal air to indicate perforation. There is no evidence of pericolonic abscess. The proximal colon is unremarkable. The appendix is not inflamed. There is normal caliber of the small bowel. There is no gastric wall thickening. No abnormalities are demonstrated relating to the liver, spleen, pancreas, adrenal glands, and kidneys. Cholecystectomy clips are noted. The portal vein is patent. The abdominal aorta is normal in caliber. No lymphadenopathy is identified the abdomen or pelvis. The urinary bladder is unremarkable. Degenerative changes are noted in the lumbar spine and bilateral sacroiliac joints. There is levoconvex thoracolumbar spinal curvature apex at L1-2. The included lung bases are clear. Impression: Circumferential wall thickening involving the splenic flexure, descending colon, and most of the sigmoid colon, suspicious for nonspecific colitis. Underlying diverticulosis is present, however the appearance is not that of acute diverticulitis. No evidence of colonic perforation or pericolonic abscess. The rectum is spared. Please note that all CT scans at this facility use dose modulation, iterative reconstruction, and/or weight-based dosing when appropriate to reduce radiation dose to as low as reasonably achievable. Dictated by Joyce Islas MD @ 11/27/2020 5:16:38 PM (Electronically Signed)
--- NOTE | 2020-11-27 17:31 | EDM.PDOC ---
ED HPI GENERAL MEDICAL PROBLEM - General Chief Complaint: Gastrointestinal Problem Stated Complaint: BLOOD IN STOOL Time Seen by Provider: 11/27/20 15:09 Source of Information: Reports: Patient History Limitations: Reports: No Limitations - History of Present Illness INITIAL COMMENTS - FREE TEXT/NARRATIVE: HISTORY AND PHYSICAL: History of present illness: Patient is a 75-year-old female who presents to the emergency room with complaints of bloody stool, abdominal cramping. She states yesterday she had the sensation of needing to have a bowel movement, felt slightly constipated. She sat on the toilet and became diaphoretic, dizzy and felt near syncopal. When she had a bowel movement she noticed copious amounts of bright red blood mixed in with her stool. She did initially come to the emergency room but due to the long wait decided to go home and see how her symptoms were in the morning. She states she did sleep well, but continued to have abdominal cramping and bloody stools. She has had to use and attends as she has a sensation of needing to urgently use the bathroom. Patient denies any fever, chills, headache, change in vision, syncope or near syncope. Denies any chest pain, back pain, shortness of breath or cough. Denies any vomiting, diarrhea, constipation or dysuria. Has not noted any blood in urine. Patient has been eating and drinking appropriately. Review of systems: As per history of present illness and below otherwise all systems reviewed and negative. Past medical history: As per history of present illness and as reviewed below otherwise noncontributory. Surgical history: As per history of present illness and as reviewed below otherwise noncontributory. Social history: See social history for further information Family history: As per history of present illness and as reviewed below otherwise noncontributory. Physical exam: General: Well developed and well nourished. Alert and orientated x 3. Nontoxic in appearance and in no acute distress. Vital signs are stable and have been reviewed by me. Nursing notes were reviewed. HEENT: Atraumatic, normocephalic, pupils equal and reactive bilaterally, negative for conjunctival pallor or scleral icterus, mucous membranes moist, TMs normal bilaterally, throat clear, neck supple, nontender, trachea midline. No drooling or trismus noted. No meningeal signs. No hot potato voice noted. Lungs: Clear to auscultation bilaterally. No wheezes, rales, or rhonchi. Chest nontender. Normal work of breathing, no accessory muscles used. Heart: S1S2, regular rate and rhythm without overt murmur, gallops, or rubs. No JVD. No peripheral edema Abdomen: Soft, nondistended, nontender. Normoactive bowel sounds. Negative for masses or costovertebral tenderness. Pelvis: Stable nontender. Genitourinary/Rectal: This was done with consent and a airfield manager at bedside. She does have external hemorrhoids. Good rectal tone. Obvious bright red blood per rectum, Hemoccult positive. Tolerated well. Skin: Intact, warm, dry. No lesions or rashes noted. Hematologic: No petechiae or purpra. Mucosa appropriate color and normal nail bed color and refill. Extremities: Atraumatic, moves all extremities per self without difficulty or deficits, negative for cords or calf pain. Neurovascular unremarkable. Neuro: Awake, alert, oriented. Cranial nerves II through XII unremarkable. Cerebellum unremarkable. Motor and sensory unremarkable throughout. Exam nonfocal. Psychiatric: Mood and affect are appropriate. Normal thought process. Answering questions appropriately. Please note that the patient was seen and evaluated during the 2019 SARS-CoV-2 novel coronavirus pandemic period. Community viral transmission is ongoing at time of this encounter and the emergency department is operating under pandemic response procedures. Medical Decision Making: Patient is a 75-year-old female who presents to the emergency room with complaints of abdominal cramping and bright red blood per rectum. She states when the symptoms initially started yesterday afternoon, her symptoms were more severe and she had felt diaphoretic and near syncopal. She states that she feels her symptoms are improving at this time although she still has blood per rectum. Physical exam shows mild tenderness to the right and left lower quadrant. Hemoccult positive. Vital signs are stable. Patient's H&H is within normal limits. CT of the abdomen and pelvis shows circumferential wall thickening involving the splenic flexure, descending colon, and most of the sigmoid colon, suspicious for nonspecific colitis. Underlying diverticulosis is present, however the appearance is not that of acute diverticulitis. No evidence of colonic perforation or pericolonic abscess. The rectum is spared. Due to the patient's physical exam and the amount of blood that was noted in the digital rectal exam I would like to repeat her H&H in the morning and have her colonoscopy expedited. I spoke with Dr. Perez, hospitalist on-call who is agreeable to keeping this patient for further care and management. I also spoke with Dr. Bedoya, general surgeon on-call, who is agreeable to seeing this patient this evening for consult of colonoscopy. He does recommend Flagyl and Levaquin, patient does have an allergy to Levaquin. Patient was made aware of all findings and is agreeable to plan of care. She denies any more further questions or concerns. Remains vitally stable. Diagnostics: CBC, CMP, UA, CT abdomen and pelvis, COVID-19 Therapeutics: IV fluid, Flagyl Impression: Colitis Bright red blood per rectum Definitive disposition and diagnosis as appropriate pending reevaluation and review of above. - Related Data Allergies Allergy/AdvReac Type Severity Reaction Status Date / Time adhesive tape Allergy Redness Verified 11/27/20 13:08 amitriptyline Allergy restlessnes Verified 11/27/20 13:08 s cefuroxime Allergy did not Verified 11/27/20 13:08 work clarithromycin Allergy Itching Verified 11/27/20 13:08 diphenhydramine HCl Allergy Agitation Verified 11/27/20 13:08 [From Benadryl] gabapentin Allergy Cannot Verified 11/27/20 13:08 Remember hydromorphone Allergy Rash Verified 11/27/20 13:08 levofloxacin [From Levaquin] Allergy chest Verified 11/27/20 13:08 tightness/diarrhea montelukast Allergy "makes JERONIMO Verified 11/27/20 13:08 more severe" morphine Allergy "makes my Verified 11/27/20 13:08 skin crawl" oxycodone [Oxycodone] Allergy Cannot Verified 11/27/20 13:08 Remember tramadol Allergy rash/itch Verified 11/27/20 13:08 [id number] Allergy "my body Uncoded 11/27/20 13:08 is resistant to it" Home Meds: Home Meds Metoprolol Succinate 50 mg PO DAILY 02/10/17 [History] Acetaminophen [Tylenol] 325 - 650 mg PO Q6H PRN 04/13/18 [History] Acetaminophen with Codeine [Acetaminophen-Cod #3] 1 tab PO Q4H PRN 04/13/18 [History] Albuterol [Ventolin HFA] 1 - 2 puff INH Q4H PRN 04/13/18 [History] Calcium Carbonate/Vitamin D3 [Calcium 600-Vit D3 800 Tab] 500 mg PO TID 04/13/18 [History] Cholecalciferol (Vitamin D3) [Vitamin D3] 3,000 units PO DAILY 04/13/18 [History] Diclofenac Sodium [Voltaren 1% Gel] 1 applic TOP TID PRN 04/13/18 [History] Magnesium Oxide 400 mg PO DAILY 04/13/18 [History] Melatonin 5 mg PO BEDTIME 04/13/18 [History] Multivitamin [Multivitamins] 1 tab PO DAILY 04/13/18 [History] Potassium Gluconate [Potassium] 99 mg PO DAILY 04/13/18 [History] Sucralfate 1 gm PO TIDMEALS 04/13/18 [History] Zinc Gluconate [Zinc] 50 mg PO DAILY 04/13/18 [History] rOPINIRole [Requip] 0.5 mg PO BEDTIME 04/13/18 [History] Gelatin 2,600 mg PO DAILY 03/29/19 [History] Methyl Salicylate/Menthol [Icy Hot] 1 applic TOP QID PRN 03/29/19 [History] [place]-3 Fatty Acids/Fish Oil [Fish Oil 1,000 mg Softgel] 5,000 unit PO DAILY 03/29/19 [History] Omeprazole 40 mg PO DAILY 03/29/19 [History] Aspirin [Aspirin EC] 81 mg PO DAILY 11/27/20 [History] Biotin 10 mg PO DAILY 11/27/20 [History] clonazePAM [Clonazepam] 1 mg PO BEDTIME 11/27/20 [History] lisinopriL [Lisinopril] 10 mg PO DAILY 11/27/20 [History] Past Medical History - Past Health History Medical/Surgical History: Denies Medical/Surgical History HEENT History: Reports: Other (See Below) Other HEENT History: wears glasses, top and bottom partial Cardiovascular History: Reports: Hypertension Other Cardiovascular History: varicose veins Respiratory History: Reports: Asthma Other Respiratory History: "mild asthma" Gastrointestinal History: Reports: GERD Other Gastrointestinal History: epigastric pain, Genitourinary History: Reports: None [employer] History: Reports: Musculoskeletal History: Reports: Back Pain, Chronic, Neck Pain, Chronic, Osteoarthritis, Other (See Below) Other Musculoskeletal History: DDD, RAPHAEL's to neck Neurological History: Reports: Migraines Other Neuro History: restless legs syndrome-states that her left leg has been hurting, but she denies pain today. Psychiatric History: Reports: Anxiety Endocrine/Metabolic History: Reports: Obesity/BMI 30+ Hematologic History: Reports: Other (See Below) Other Hematologic History: transfusion unknown, may have had one after vaginal delivery Immunologic History: Reports: None Oncologic (Cancer) History: Reports: None Dermatologic History: Reports: None - Infectious Disease History Infectious Disease History: Reports: Chicken Pox, Measles, Novel Coronavirus - Past Surgical History Head Surgeries/Procedures: Reports: None HEENT Surgical History: Reports: Cataract Surgery, Naso-Sinus Surgery, Oral Surgery, Tonsillectomy Other HEENT Surgeries/Procedures: dental implants Cardiovascular Surgical History: Reports: None Respiratory Surgical History: Reports: None GI Surgical History: Reports: Cholecystectomy, Colonoscopy Female Surgical History: Reports: Breast Biopsy, Section, D&C, Hysterectomy Neurological Surgical History: Reports: C-Spine, Other (See Below) Other Neurological Surgeries/Procedures: neck surgery Musculoskeletal Surgical History: Reports: Arthroscopic Knee, Carpal Tunnel, Joint Replacement, Knee Replacement, Shoulder Surgery, Other (See Below) Other Musculoskeletal Surgeries/Procedures:: salvatore knee replacements, salvatore shoulder replacements , Left foot surgery, neck surgery Oncologic Surgical History: Reports: Biopsy of Breast Social & Family History - Family History Family Medical History: No Pertinent Family History - Tobacco Use Tobacco Use Status *Q: Never Tobacco User - Caffeine Use Caffeine Use: Reports: Coffee Caffeine Use Comment: 2 cups daily - Recreational Drug Use Recreational Drug Use: No ED ROS GENERAL - Review of Systems Review Of Systems: Comprehensive ROS is negative, except as noted in HPI. ED EXAM, GI/ABD - Physical Exam Exam: See Below (See dictation) Course - Vital Signs Last Recorded V/S: Last Vital Signs Temp 96.4 F L 11/27/20 18:07 Pulse 72 11/27/20 18:07 Resp 18 11/27/20 18:07 BP 151/73 H 11/27/20 18:07 Pulse Ox 94 L 11/27/20 18:07 - Orders/Labs/Meds Orders: Active Orders 24 hr Category Date Time Status CORONAVIRUS COVID-19 KENDELL [MOLEC] Stat Lab 11/27/20 18:05 Received Sodium Chloride 0.9% [Normal Saline] 1,000 ml Med 11/27/20 18:54 Ordered IV STAT Sodium Chloride 0.9% [Saline Flush] Med 11/27/20 15:22 Active 10 ml FLUSH ASDIRECTED PRN Sodium Chloride 0.9% [Saline Flush] Med 11/27/20 15:22 Active 2.5 ml FLUSH ASDIRECTED PRN Saline Lock Insert [OM.PC] Stat Oth 11/27/20 15:22 Ordered Medication Orders Sodium Chloride (Normal Saline) 1,000 mls @ 125 mls/hr IV STAT ONE Stop: 11/28/20 02:53 Sodium Chloride (Sodium Chloride 0.9% 10 Ml Syringe) 10 ml FLUSH ASDIRECTED PRN PRN Reason: Keep Vein Open Last Admin: 11/27/20 15:31 Dose: 10 ml Documented by: LILY Sodium Chloride (Sodium Chloride 0.9% 2.5 Ml Syringe) 2.5 ml FLUSH ASDIRECTED PRN PRN Reason: Keep Vein Open Last Admin: 11/27/20 15:31 Dose: 2.5 ml Documented by: LILY Labs: Laboratory Tests 11/27/20 11/27/20 11/27/20 Range/Units 15:30 15:30 16:59 WBC 8.47 (4.0-11.0) K/uL RBC 4.31 (4.30-5.90) M/uL Hgb 12.7 (12.0-16.0) g/dL Hct 36.8 (36.0-46.0) % MCV 85.4 (80.0-98.0) fL MCH 29.5 (27.0-32.0) pg MCHC 34.5 (31.0-37.0) g/dL RDW Std Deviation 42.1 (28.0-62.0) fl RDW Coeff of Brynn 14 (11.0-15.0) % Plt Count 195 (150-400) K/uL MPV 9.30 (7.40-12.00) fL Neut % (Auto) 69.2 (48.0-80.0) % Lymph % (Auto) 20.5 (16.0-40.0) % [place] % (Auto) 7.6 (0.0-15.0) % Eos % (Auto) 2.5 (0.0-7.0) % Baso % (Auto) 0.2 (0.0-1.5) % Neut # (Auto) 5.9 H (1.4-5.7) K/uL Lymph # (Auto) 1.7 (0.6-2.4) K/uL [place] # (Auto) 0.6 (0.0-0.8) K/uL Eos # (Auto) 0.2 (0.0-0.7) K/uL Baso # (Auto) 0.0 (0.0-0.1) K/uL Nucleated RBC % 0.0 /100WBC Nucleated RBCs # 0 K/uL Sodium 135 L (136-145) mmol/L Potassium 3.9 (3.5-5.1) mmol/L Chloride 98 (98-107) mmol/L Carbon Dioxide 30.8 (21.0-32.0) mmol/L BUN 14 (7.0-18.0) mg/dL Creatinine 0.7 (0.6-1.0) mg/dL Est Cr Clr Drug Dosing 51.59 mL/min Estimated GFR (MDRD) > 60.0 ml/min Glucose 137 H (74-106) mg/dL Calcium 9.0 (8.5-10.1) mg/dL Total Bilirubin 0.6 (0.2-1.0) mg/dL AST 19 (15-37) IU/L ALT 27 (14-63) IU/L Alkaline Phosphatase 81 (46-116) U/L Total Protein 7.5 (6.4-8.2) g/dL Albumin 3.7 (3.4-5.0) g/dL Globulin 3.8 (2.6-4.0) g/dL Albumin/Globulin Ratio 1.0 (0.9-1.6) Urine Color YELLOW Urine Appearance CLEAR Urine pH 6.5 (5.0-8.0) Ur Specific [place] <= 1.005 (1.001-1.035) Urine Protein NEGATIVE (NEGATIVE) mg/dL Urine Glucose (UA) NEGATIVE (NEGATIVE) mg/dL Urine Ketones NEGATIVE (NEGATIVE) mg/dL Urine Occult Blood NEGATIVE (NEGATIVE) Urine Nitrite NEGATIVE (NEGATIVE) Urine Bilirubin NEGATIVE (NEGATIVE) Urine Urobilinogen 0.2 (<2.0) EU/dL Ur Leukocyte Esterase NEGATIVE (NEGATIVE) Meds: Medications Generic Name Dose Route Start Last Admin Trade Name Freq PRN Reason Stop Dose Admin Sodium Chloride 1,000 mls @ 125 mls/hr 11/27/20 18:54 Normal Saline IV 11/28/20 02:53 STAT ONE Sodium Chloride 10 ml 11/27/20 15:22 11/27/20 15:31 Sodium Chloride 0.9% 10 Ml Syringe FLUSH 10 ml ASDIRECTED PRN Administration Keep Vein Open Sodium Chloride 2.5 ml 11/27/20 15:22 11/27/20 15:31 Sodium Chloride 0.9% 2.5 Ml Syringe FLUSH 2.5 ml ASDIRECTED PRN Administration Keep Vein Open Discontinued Medications Generic Name Dose Route Start Last Admin Trade Name Freq PRN Reason Stop Dose Admin Metronidazole 500 mg/ Premix 100 mls @ 100 mls/hr 11/27/20 17:53 11/27/20 18:31 IV 11/27/20 18:52 100 mls/hr ONETIME ONE Administration Iopamidol 100 ml 11/27/20 16:46 11/27/20 16:47 Iopamidol 755 Mg/Ml 500 Ml Multipack Bottle IVPUSH 11/27/20 16:47 100 ml ONETIME STA Administration Departure - Departure Time of Disposition: 18:55 Disposition: Refer to Observation Clinical Impression: BRBPR (bright red blood per rectum), Colitis - Discharge Information Referrals: Lance De Leon MD [Primary Care Provider] - Forms: ED Department Discharge Sepsis Event Note (ED) - Evaluation Sepsis Screening Result: No Definite Risk - Focused Exam Vital Signs: Vital Signs Temp Pulse Resp BP Pulse Ox 11/27/20 18:07 96.4 F L 72 18 151/73 H 94 L 11/27/20 15:17 97 F 79 18 166/93 H 96 11/27/20 13:05 98 F 75 18 132/82 94 L - My Orders Last 24 Hours: My Active Orders 11/27/20 15:22 Sodium Chloride 0.9% [Saline Flush] 10 ml FLUSH ASDIRECTED PRN Sodium Chloride 0.9% [Saline Flush] 2.5 ml FLUSH ASDIRECTED PRN Saline Lock Insert [OM.PC] Stat 11/27/20 18:05 CORONAVIRUS COVID-19 KENDELL [MOLEC] Stat 11/27/20 18:54 Sodium Chloride 0.9% [Normal Saline] 1,000 ml IV STAT - Assessment/Plan Last 24 Hours: My Active Orders 11/27/20 15:22 Sodium Chloride 0.9% [Saline Flush] 10 ml FLUSH ASDIRECTED PRN Sodium Chloride 0.9% [Saline Flush] 2.5 ml FLUSH ASDIRECTED PRN Saline Lock Insert [OM.PC] Stat 11/27/20 18:05 CORONAVIRUS COVID-19 KENDELL [MOLEC] Stat 11/27/20 18:54 Sodium Chloride 0.9% [Normal Saline] 1,000 ml IV STAT
[2020-11-27] MEDS ORDERED: metroNIDAZOLE/Normal Saline 500 MG in Premix Bag 1 BAG IV ONE (17:53)
[2020-11-27] MEDS ORDERED: Sodium Chloride 0.9% 1,000 ML IV ONE (18:54)
--- NOTE | 2020-11-27 19:36 | PCM.HP.2 ---
<Rod Gonzalez - Last Filed: 11/28/20 00:48> H&P History of Present Illness - General Date of Service: 11/27/20 Admit Problem/Dx: Admission Diagnosis/Problem Admission Diagnosis/Problem Colitis - History of Present Illness Initial Comments - Free Text/Narative: 75-year-old female with a past medical history of hypertension, asthma, GERD, back pain, osteoarthritis, restless leg syndrome presented to the emergency room with complaints of 1 day history of bright red blood per rectum. Patient states having urgency to have a bowel movement yesterday, at which time she became dizzy, diaphoretic post bowel movement. Patient also states that he can amount of bright red blood in her stool while finishing bowel movement. Patient states that she did come to emergency room yesterday but due to the long wait times she decided to go back home and see if her symptoms are resolved. Prior to admission patient continued to have abdominal pain and bloody stool. At admission patient denied fever, chills, nausea, vomiting, pain, shortness of breath, dysuria. Patient states mild lower abdominal pain. No changes to patient's eating or drinking habit. Patient denies any recent history of unusual foods. ER course to include Lab work: White blood cell 8.47, hemoglobin 12.7, hematocrit 36.8, platelet 195, sodium 135, potassium 4 9, BUN 14, creatinine 0.7, AST 19, ALT 27. Urinalysis negative. CT abdomen pelvis impression: Circumferential wall thickening along the splenic flexure, suspicious for nonspecific colitis. Underlying diverticulosis present however the appearance is not that of acute diverticulitis Patient was given IV fluids and one course of Flagyl. Patient admitted for follow-up with surgery, IV fluids, IV antibiotics. - Related Data Allergies/Adverse Reactions: Allergies Allergy/AdvReac Type Severity Reaction Status Date / Time adhesive tape Allergy Redness Verified 11/27/20 23:48 amitriptyline Allergy restlessnes Verified 11/27/20 23:48 s cefuroxime Allergy did not Verified 11/27/20 23:48 work clarithromycin Allergy Itching Verified 11/27/20 23:48 diphenhydramine HCl Allergy Agitation Verified 11/27/20 23:48 [From Benadryl] gabapentin Allergy Cannot Verified 11/27/20 23:48 Remember hydromorphone Allergy Rash Verified 11/27/20 23:48 levofloxacin [From Levaquin] Allergy chest Verified 11/27/20 23:48 tightness/diarrhea montelukast Allergy "makes JERONIMO Verified 11/27/20 23:48 more severe" morphine Allergy "makes my Verified 11/27/20 23:48 skin crawl" oxycodone [Oxycodone] Allergy Cannot Verified 11/27/20 23:48 Remember tramadol Allergy rash/itch Verified 11/27/20 23:48 SMZ-TMP Allergy "my body Uncoded 11/27/20 13:08 is resistant to it" Home Medications: Home Meds Metoprolol Succinate 25 mg PO BID 02/10/17 [History] Acetaminophen [Tylenol] 325 - 650 mg PO Q6H PRN 04/13/18 [History] Acetaminophen with Codeine [Acetaminophen-Cod #3] 1 tab PO Q4H PRN 04/13/18 [History] Albuterol [Ventolin HFA] 1 - 2 puff INH Q4H PRN 04/13/18 [History] Calcium Carbonate/Vitamin D3 [Calcium 600-Vit D3 800 Tab] 500 mg PO TID 04/13/18 [History] Cholecalciferol (Vitamin D3) [Vitamin D3] 3,000 units PO DAILY 04/13/18 [History] Diclofenac Sodium [Voltaren 1% Gel] 1 applic TOP TID PRN 04/13/18 [History] Magnesium Oxide 400 mg PO DAILY 04/13/18 [History] Melatonin 5 mg PO BEDTIME 04/13/18 [History] Multivitamin [Multivitamins] 1 tab PO DAILY 04/13/18 [History] Potassium Gluconate [Potassium] 99 mg PO DAILY 04/13/18 [History] Sucralfate 1 gm PO TIDMEALS 04/13/18 [History] Zinc Gluconate [Zinc] 50 mg PO DAILY 04/13/18 [History] rOPINIRole [Requip] 0.5 mg PO BEDTIME 04/13/18 [History] Gelatin 2,600 mg PO DAILY 03/29/19 [History] Methyl Salicylate/Menthol [Icy Hot] 1 applic TOP QID PRN 03/29/19 [History] Hernandez-3 Fatty Acids/Fish Oil [Fish Oil 1,000 mg Softgel] 5,000 unit PO DAILY 03/29/19 [History] Omeprazole 40 mg PO DAILY 03/29/19 [History] Aspirin [Aspirin EC] 81 mg PO DAILY 11/27/20 [History] Biotin 10 mg PO DAILY 11/27/20 [History] clonazePAM [Clonazepam] 1 mg PO BEDTIME 11/27/20 [History] lisinopriL [Lisinopril] 10 mg PO DAILY 11/27/20 [History] Amoxicillin/Clavulanate K [Augmentin 875-125 MG] 1 tab PO BID 9 Days #18 tablet 11/28/20 [Rx] Past Medical History - Past Health History Medical/Surgical History: Denies Medical/Surgical History HEENT History: Reports: Other (See Below) Other HEENT History: wears glasses, top and bottom partial Cardiovascular History: Reports: Hypertension Other Cardiovascular History: varicose veins Respiratory History: Reports: Asthma Other Respiratory History: "mild asthma" Gastrointestinal History: Reports: GERD Other Gastrointestinal History: epigastric pain, Genitourinary History: Reports: None MIXER AND BLENDER History: Reports: Musculoskeletal History: Reports: Back Pain, Chronic, Neck Pain, Chronic, Osteoarthritis, Other (See Below) Other Musculoskeletal History: DDD, RAPHAEL's to neck Neurological History: Reports: Migraines Other Neuro History: restless legs syndrome-states that her left leg has been hurting, but she denies pain today. Psychiatric History: Reports: Anxiety Endocrine/Metabolic History: Reports: Obesity/BMI 30+ Hematologic History: Reports: Other (See Below) Other Hematologic History: transfusion unknown, may have had one after vaginal delivery Immunologic History: Reports: None Oncologic (Cancer) History: Reports: None Dermatologic History: Reports: None - Infectious Disease History Infectious Disease History: Reports: Chicken Pox, Measles, Novel Coronavirus - Past Surgical History Head Surgeries/Procedures: Reports: None HEENT Surgical History: Reports: Cataract Surgery, Naso-Sinus Surgery, Oral Surgery, Tonsillectomy Other HEENT Surgeries/Procedures: dental implants Cardiovascular Surgical History: Reports: None Respiratory Surgical History: Reports: None GI Surgical History: Reports: Cholecystectomy, Colonoscopy Female Surgical History: Reports: Breast Biopsy, Section, D&C, Hysterectomy Neurological Surgical History: Reports: C-Spine, Other (See Below) Other Neurological Surgeries/Procedures: neck surgery Musculoskeletal Surgical History: Reports: Arthroscopic Knee, Carpal Tunnel, Joint Replacement, Knee Replacement, Shoulder Surgery, Other (See Below) Other Musculoskeletal Surgeries/Procedures:: salvatore knee replacements, salvatore shoulder replacements , Left foot surgery, neck surgery Oncologic Surgical History: Reports: Biopsy of Breast Social & Family History - Family History Family Medical History: No Pertinent Family History - Tobacco Use Tobacco Use Status *Q: Never Tobacco User - Caffeine Use Caffeine Use: Reports: Coffee Caffeine Use Comment: 2 cups daily - Recreational Drug Use Recreational Drug Use: No H&P Review of Systems - Review of Systems: Review Of Systems: See Below General: Denies: Fever, Chills Pulmonary: Denies: Shortness of Breath, Wheezing, Cough Cardiovascular: Denies: Palpitations, Dyspnea on Exertion, Orthopnea, Edema Gastrointestinal: Reports: Hematochezia. Denies: Abdominal Pain, Black Stool, Constipation, Diarrhea, Decreased Appetite, Hematemesis, Nausea Genitourinary: Denies: Dysuria Psychiatric: Denies: Confusion Neurological: Denies: Confusion, Dizziness, Headache Exam - Exam Exam: See Below - Vital Signs Vital Signs: Last Vital Signs Temp 96.4 F L 11/27/20 18:07 Pulse 72 11/27/20 18:07 Resp 18 11/27/20 18:07 BP 151/73 H 11/27/20 18:07 Pulse Ox 94 L 11/27/20 18:07 Weight: 85.729 kg - Exam General: Alert, Oriented Neck: Supple Lungs: Clear to Auscultation, Normal Respiratory Effort Cardiovascular: Regular Rate, Regular Rhythm GI/Abdominal Exam: Soft, Non-Tender, No Distention Extremities: No Pedal Edema Neuro Extensive - Mental Status: Alert, Oriented x3 Psychiatric: Alert - Patient Data Lab Results Last 24 hrs: Laboratory Results - last 24 hr 11/27/20 11/27/20 11/27/20 Range/Units 15:30 15:30 16:59 WBC 8.47 (4.0-11.0) K/uL RBC 4.31 (4.30-5.90) M/uL Hgb 12.7 (12.0-16.0) g/dL Hct 36.8 (36.0-46.0) % MCV 85.4 (80.0-98.0) fL MCH 29.5 (27.0-32.0) pg MCHC 34.5 (31.0-37.0) g/dL RDW Std Deviation 42.1 (28.0-62.0) fl RDW Coeff of Brynn 14 (11.0-15.0) % Plt Count 195 (150-400) K/uL MPV 9.30 (7.40-12.00) fL Neut % (Auto) 69.2 (48.0-80.0) % Lymph % (Auto) 20.5 (16.0-40.0) % Crittenden % (Auto) 7.6 (0.0-15.0) % Eos % (Auto) 2.5 (0.0-7.0) % Baso % (Auto) 0.2 (0.0-1.5) % Neut # (Auto) 5.9 H (1.4-5.7) K/uL Lymph # (Auto) 1.7 (0.6-2.4) K/uL Crittenden # (Auto) 0.6 (0.0-0.8) K/uL Eos # (Auto) 0.2 (0.0-0.7) K/uL Baso # (Auto) 0.0 (0.0-0.1) K/uL Nucleated RBC % 0.0 /100WBC Nucleated RBCs # 0 K/uL Sodium 135 L (136-145) mmol/L Potassium 3.9 (3.5-5.1) mmol/L Chloride 98 (98-107) mmol/L Carbon Dioxide 30.8 (21.0-32.0) mmol/L BUN 14 (7.0-18.0) mg/dL Creatinine 0.7 (0.6-1.0) mg/dL Est Cr Clr Drug Dosing 51.59 mL/min Estimated GFR (MDRD) > 60.0 ml/min Glucose 137 H (74-106) mg/dL Calcium 9.0 (8.5-10.1) mg/dL Total Bilirubin 0.6 (0.2-1.0) mg/dL AST 19 (15-37) IU/L ALT 27 (14-63) IU/L Alkaline Phosphatase 81 (46-116) U/L Total Protein 7.5 (6.4-8.2) g/dL Albumin 3.7 (3.4-5.0) g/dL Globulin 3.8 (2.6-4.0) g/dL Albumin/Globulin Ratio 1.0 (0.9-1.6) Urine Color YELLOW Urine Appearance CLEAR Urine pH 6.5 (5.0-8.0) Ur Specific Greer <= 1.005 (1.001-1.035) Urine Protein NEGATIVE (NEGATIVE) mg/dL Urine Glucose (UA) NEGATIVE (NEGATIVE) mg/dL Urine Ketones NEGATIVE (NEGATIVE) mg/dL Urine Occult Blood NEGATIVE (NEGATIVE) Urine Nitrite NEGATIVE (NEGATIVE) Urine Bilirubin NEGATIVE (NEGATIVE) Urine Urobilinogen 0.2 (<2.0) EU/dL Ur Leukocyte Esterase NEGATIVE (NEGATIVE) SARS-CoV-2 RNA (KENDELL) (NEGATIVE) 11/27/20 Range/Units 18:05 WBC (4.0-11.0) K/uL RBC (4.30-5.90) M/uL Hgb (12.0-16.0) g/dL Hct (36.0-46.0) % MCV (80.0-98.0) fL MCH (27.0-32.0) pg MCHC (31.0-37.0) g/dL RDW Std Deviation (28.0-62.0) fl RDW Coeff of Brynn (11.0-15.0) % Plt Count (150-400) K/uL MPV (7.40-12.00) fL Neut % (Auto) (48.0-80.0) % Lymph % (Auto) (16.0-40.0) % Crittenden % (Auto) (0.0-15.0) % Eos % (Auto) (0.0-7.0) % Baso % (Auto) (0.0-1.5) % Neut # (Auto) (1.4-5.7) K/uL Lymph # (Auto) (0.6-2.4) K/uL Crittenden # (Auto) (0.0-0.8) K/uL Eos # (Auto) (0.0-0.7) K/uL Baso # (Auto) (0.0-0.1) K/uL Nucleated RBC % /100WBC Nucleated RBCs # K/uL Sodium (136-145) mmol/L Potassium (3.5-5.1) mmol/L Chloride (98-107) mmol/L Carbon Dioxide (21.0-32.0) mmol/L BUN (7.0-18.0) mg/dL Creatinine (0.6-1.0) mg/dL Est Cr Clr Drug Dosing mL/min Estimated GFR (MDRD) ml/min Glucose (74-106) mg/dL Calcium (8.5-10.1) mg/dL Total Bilirubin (0.2-1.0) mg/dL AST (15-37) IU/L ALT (14-63) IU/L Alkaline Phosphatase (46-116) U/L Total Protein (6.4-8.2) g/dL Albumin (3.4-5.0) g/dL Globulin (2.6-4.0) g/dL Albumin/Globulin Ratio (0.9-1.6) Urine Color Urine Appearance Urine pH (5.0-8.0) Ur Specific Greer (1.001-1.035) Urine Protein (NEGATIVE) mg/dL Urine Glucose (UA) (NEGATIVE) mg/dL Urine Ketones (NEGATIVE) mg/dL Urine Occult Blood (NEGATIVE) Urine Nitrite (NEGATIVE) Urine Bilirubin (NEGATIVE) Urine Urobilinogen (<2.0) EU/dL Ur Leukocyte Esterase (NEGATIVE) SARS-CoV-2 RNA (KENDELL) NEGATIVE (NEGATIVE) Result Diagrams: 11/27/20 15:30 11/27/20 15:30 Sepsis Event Note - Evaluation Sepsis Screening Result: No Definite Risk - Focused Exam Vital Signs: Vital Signs Temp Pulse Resp BP Pulse Ox 11/27/20 18:07 96.4 F L 72 18 151/73 H 94 L 11/27/20 15:17 97 F 79 18 166/93 H 96 11/27/20 13:05 98 F 75 18 132/82 94 L - Problem List (1) BRBPR (bright red blood per rectum) SNOMED Code(s): 63490456 ICD Code: K62.5 - HEMORRHAGE OF ANUS AND RECTUM Status: Acute (2) Colitis SNOMED Code(s): 72682261 ICD Code: K52.9 - NONINFECTIVE GASTROENTERITIS AND COLITIS, UNSPECIFIED Status: Acute (3) Heartburn SNOMED Code(s): 38993355 ICD Code: R12 - HEARTBURN Status: Acute Problem List Initiated/Reviewed/Updated: Yes Orders Last 24hrs: Active Orders 24 hr Category Date Time Status Admission Status [Patient Status] [ADT] Stat ADT 11/27/20 18:56 Active Sodium Chloride 0.9% [Normal Saline] 1,000 ml Med 11/27/20 18:54 Active IV STAT Sodium Chloride 0.9% [Saline Flush] Med 11/27/20 15:22 Active 10 ml FLUSH ASDIRECTED PRN Sodium Chloride 0.9% [Saline Flush] Med 11/27/20 15:22 Active 2.5 ml FLUSH ASDIRECTED PRN Saline Lock Insert [OM.PC] Stat Oth 11/27/20 15:22 Ordered Medication Orders Sodium Chloride (Normal Saline) 1,000 mls @ 125 mls/hr IV STAT ONE Stop: 11/28/20 02:53 Last Admin: 11/27/20 19:34 Dose: 125 mls/hr Documented by: LILY Sodium Chloride (Sodium Chloride 0.9% 10 Ml Syringe) 10 ml FLUSH ASDIRECTED PRN PRN Reason: Keep Vein Open Last Admin: 11/27/20 15:31 Dose: 10 ml Documented by: LILY Sodium Chloride (Sodium Chloride 0.9% 2.5 Ml Syringe) 2.5 ml FLUSH ASDIRECTED PRN PRN Reason: Keep Vein Open Last Admin: 11/27/20 15:31 Dose: 2.5 ml Documented by: LILY Assessment/Plan Comment:: Bright red blood per rectum/Colitis-Dr. Salazar, general surgery has seen the patient and recommends IV fluids, IV antibiotics, p.o. diet, outpatient colonoscopy upon discharge. We will resume IV Zosyn 3.3 g every 6 hours, NS 125 mL an hour, regular diet. Monitor a.m. CBC for blood loss. Patient states history of chronic back pain osteoarthritis, resume acetaminophen codeine patient states that stress leg syndrome, resume ropinirole. Hypertensionlisinopril, metoprolol GERDomeprazole <Lamonte Perez - Last Filed: 11/29/20 21:59> H&P History of Present Illness - General Date of Service: 11/27/20 Admit Problem/Dx: Admission Diagnosis/Problem Admission Diagnosis/Problem Colitis Exam - Vital Signs Vital Signs: Last Vital Signs Temp 36.9 C 11/28/20 08:04 Pulse 80 11/28/20 08:52 Resp 20 11/28/20 08:04 BP 137/91 H 11/28/20 08:53 Pulse Ox 93 L 11/28/20 08:04 - Patient Data Result Diagrams: 11/28/20 05:30 11/28/20 05:30 - Free Text/Narrative Note: I have seen and examined the patient. I have discussed findings and treatment plan with the resident. I agree with the assessment and plan outlined in the following note.
[2020-11-27] MEDS ORDERED: Acetaminophen/Codeine 300-30 MG Tab PO PRN (20:03)
[2020-11-27] MEDS ORDERED: Albuterol 8 GM Inhaler INH PRN (20:08)
[2020-11-27] MEDS ORDERED: rOPINIRole 0.5 MG Tab PO SCH (21:00)
--- NOTE | 2020-11-27 22:35 | PCM.SN.2 ---
- Free Text/Narrative Note: Pt seen, chart reviewed; gib, apparantly hemodynamically stable, so far; would treat GIB, avoid nsaid or anticoagulation, 2 large bore iv access, strict i/o, monitor urine output; ok for po diet; continue iv flagyl and levaquine, or zosyn if allergic; resolving abd pain, L guller fluid, thickened inflamed L colon, rufino gerous for endoscopy; would treat colitis first, discharge, fu w me in office to set up outpatient colonoscopy; no plan for in patient endoscope; will follow patient with you; [id number] Time Documentation
[2020-11-27] MEDS: Piperacillin/Tazobactam 3.375 GM in Sodium Chloride 0.9% 50 ML IV SCH (22:40)
[2020-11-28] MEDS: Piperacillin/Tazobactam 3.375 GM in Sodium Chloride 0.9% 50 ML IV SCH (05:31)
--- NOTE | 2020-11-28 06:28 | CONS ---
DATE OF CONSULTATION: 11/27/2020 DATE OF : 1945 PRIMARY CARE PHYSICIAN: Lance De Leon M.D. Consult from Dr. Perez and Dr. Rod Gonzalez. CONCERNING QUESTION: Bright red blood per rectum. HISTORY OF PRESENT ILLNESS: The patient is a 75-year-old lady, obese, BMI of 35.7, and allergic to more than 12 different medications, complained of 24-hour history of acute onset of bright red blood per rectum with blood clot and abdominal pain. The patient felt fatigued and near syncope, but never blacked out. Denied prior episode. The patient remarked that the blood was bright red and there was some small clot surrounding the stool. Denied prior episode. ALLERGIES: Refer to Nursing for details. MEDICATION: Refer to Nursing for details. SOCIAL HISTORY: Denied tobacco, alcohol abuse. FAMILY HISTORY: Noncontributory. PHYSICAL EXAMINATION: GENERAL: A very pleasant lady, walking, comfortable in room, in no acute distress. HEENT: Normocephalic, atraumatic. Sclerae anicteric. LUNGS: Clear to auscultation. HEART: Regular rate and rhythm. ABDOMEN: Soft, nondistended. Minimal tenderness in the left lower quadrant. Large lower midline surgical scar from prior . LABORATORY VALUES: Upon consultation, white count is 8.5, H and H are 13 and 37, platelets 195. BUN is 14, creatinine is 0.7. INR was 0.99. AST and ALT 19 and 27, alk phos is 81. Troponin is normal and 0.05 two years ago. UA is negative. COVID was negative at this time. The patient was COVID positive on 12/28/2019. IMPRESSION: Bright red blood per rectum, gastrointestinal bleeding protocol, 2 large-bore intravenous access. Monitor urine output. Strict in and out. Avoid any anticoagulation or NSAID. The patient's pain has greatly improved today and the patient also remarked that she thinks her bleeding has resolved. Long discussion with the patient that with the CAT scan abnormal finding with circumferential colitis in the left colon to proximal descending colon, it is possible colon disease versus infection. The patient would benefit from a colonoscopy with her situation of resolving abdominal pain and thickened colitis and some fluid in the left gutter. The patient's colon is inflamed. Not a good time to do any endoscopy study. The patient remarked that she had a colonoscopy done with Dr. De La Cruz in 01/2014, so is probably at least 7 years ago. The patient remarked that the doctor told her, her colon is normal or fine. In summary, GI bleeding with abnormal CAT scan. Will benefit from a colonoscopy and recommend to treat her conservatively. Avoid NSAID and probably able to have some kind of p.o. diet. There is no plan to proceed with colonoscopy in the next 1 or 2 weeks. Assume the patient's bleeding stopped either clinically or by the returning of the brown stool, the patient can go home and have a followup appointment with me in about 1 or 2 weeks. We will then discuss colonoscopy. Long discussion with the patient regarding the plan and the patient concurred, and on top of this the patient mentioned that Dr. Packer the mask layout designer, says she has a flap or a hole between two chambers, not quite sure. I would check with the patient's Cardiology office visit for sure. For the time being, there is no plan to do inpatient colonoscopy. We will follow the patient with you. The patient can have p.o. diet. AMBERLY / GLYNN /[id number] DONTE
[2020-11-28 06:42] LABS: BLOOD UREA NITROGEN,BUN 14 mg/dL (7.0-18.0); CARBON DIOXIDE,CO2 26.5 mmol/L (21.0-32.0); CHLORIDE,CL 102 mmol/L (98-107); GLUCOSE RANDOM 103 mg/dL (74-106); POTASSIUM,K 3.9 mmol/L (3.5-5.1); SODIUM,NA 137 mmol/L (136-145)
[2020-11-28] MEDS ORDERED: Omeprazole 20 MG Cap.CR PO SCH (07:30)
[2020-11-28] MEDS ORDERED: Lisinopril 10 MG Tab PO SCH (09:00)
[2020-11-28] MEDS ORDERED: Metoprolol Succinate 50 MG Tab.ER PO SCH (09:00)
--- NOTE | 2020-11-28 10:32 | PCM.DCSUM1 ---
<Rod Gonzalez - Last Filed: 11/28/20 15:06> Discharge Summary - Hospital Course Free Text/Narrative:: 75-year-old female with a past medical history of hypertension, asthma, GERD, back pain, osteoarthritis, restless leg syndrome presented to the emergency room with complaints of 1 day history of bright red blood per rectum. Patient states having urgency to have a bowel movement yesterday, at which time she became dizzy, diaphoretic post bowel movement. Patient also states that he can amount of bright red blood in her stool while finishing bowel movement. Patient states that she did come to emergency room yesterday but due to the long wait times she decided to go back home and see if her symptoms are resolved. Prior to admission patient continued to have abdominal pain and bloody stool. At admission patient denied fever, chills, nausea, vomiting, pain, shortness of breath, dysuria. Patient states mild lower abdominal pain. No changes to patient's eating or drinking habit. Patient denies any recent history of unusual foods. ER course to include Lab work: White blood cell 8.47, hemoglobin 12.7, hematocrit 36.8, platelet 195, sodium 135, potassium 4 9, BUN 14, creatinine 0.7, AST 19, ALT 27. Urinalysis negative. CT abdomen pelvis impression: Circumferential wall thickening along the splenic flexure, suspicious for nonspecific colitis. Underlying diverticulosis present however the appearance is not that of acute diverticulitis Patient was given IV fluids and one course of Flagyl. Patient admitted for follow-up with surgery, IV fluids, IV antibiotics. Per surgery patient can tolerate p.o. diet, resume IV fluids, resume IV antibiotics, which was continued overnight during mission. Upon discharge patient to schedule follow-up appointment and a colonoscopy in 2 weeks time. Patient discharged home on Augmentin X 9 days. - Discharge Data Discharge Date: 11/28/20 Discharge Disposition: Home, Self-Care 01 Condition: Stable - Referral to Home Health Primary Care Physician: Lance De Leon MD - Discharge Diagnosis/Problem(s) (1) BRBPR (bright red blood per rectum) SNOMED Code(s): 74861245 ICD Code: K62.5 - HEMORRHAGE OF ANUS AND RECTUM Status: Acute (2) Colitis SNOMED Code(s): 61816171 ICD Code: K52.9 - NONINFECTIVE GASTROENTERITIS AND COLITIS, UNSPECIFIED Status: Acute (3) Heartburn SNOMED Code(s): 87047861 ICD Code: R12 - HEARTBURN Status: Acute - Patient Instructions Notify Provider of: Fever, Increased Pain, Swelling and Redness, Nausea and/or Vomiting Other/Special Instructions: Please report any symptoms of nausea, vomiting, abdominal pain, diarrhea, bright red blood per rectum, bloody stools to primary care physician. - Discharge Plan Prescriptions/Med Rec: Amoxicillin/Clavulanate K [Augmentin 875-125 MG] 1 tab PO BID 9 Days #18 tablet Home Medications: Home Meds Metoprolol Succinate 25 mg PO BID 02/10/17 [History] Acetaminophen [Tylenol] 325 - 650 mg PO Q6H PRN 04/13/18 [History] Acetaminophen with Codeine [Acetaminophen-Cod #3] 1 tab PO Q4H PRN 04/13/18 [History] Albuterol [Ventolin HFA] 1 - 2 puff INH Q4H PRN 04/13/18 [History] Calcium Carbonate/Vitamin D3 [Calcium 600-Vit D3 800 Tab] 500 mg PO TID 04/13/18 [History] Cholecalciferol (Vitamin D3) [Vitamin D3] 3,000 units PO DAILY 04/13/18 [History] Diclofenac Sodium [Voltaren 1% Gel] 1 applic TOP TID PRN 04/13/18 [History] Magnesium Oxide 400 mg PO DAILY 04/13/18 [History] Melatonin 5 mg PO BEDTIME 04/13/18 [History] Multivitamin [Multivitamins] 1 tab PO DAILY 04/13/18 [History] Potassium Gluconate [Potassium] 99 mg PO DAILY 04/13/18 [History] Sucralfate 1 gm PO TIDMEALS 04/13/18 [History] Zinc Gluconate [Zinc] 50 mg PO DAILY 04/13/18 [History] rOPINIRole [Requip] 0.5 mg PO BEDTIME 04/13/18 [History] Gelatin 2,600 mg PO DAILY 03/29/19 [History] Methyl Salicylate/Menthol [Icy Hot] 1 applic TOP QID PRN 03/29/19 [History] [place]-3 Fatty Acids/Fish Oil [Fish Oil 1,000 mg Softgel] 5,000 unit PO DAILY 0 03/29/19 [History] Omeprazole 40 mg PO DAILY 03/29/19 [History] Aspirin [Aspirin EC] 81 mg PO DAILY 11/27/20 [History] Biotin 10 mg PO DAILY 11/27/20 [History] clonazePAM [Clonazepam] 1 mg PO BEDTIME 11/27/20 [History] lisinopriL [Lisinopril] 10 mg PO DAILY 11/27/20 [History] Amoxicillin/Clavulanate K [Augmentin 875-125 MG] 1 tab PO BID 9 Days #18 tablet 11/28/20 [Rx] Patient Handouts: Amoxicillin; Clavulanic Acid Tablets, Ulcerative Colitis, Adult Referrals: Yovanny Peña MD [Physician] - 12/05/20 9:00 am Lance De Leon MD [Primary Care Provider] - (Request for follow up appointment has been sent. Call the clinic if you don't hear back. ) - Discharge Summary/Plan Comment DC Time >30 min.: Yes Total # of Minutes for Discharge Time: 31 - General Info Date of Service: 11/28/20 Subjective Update: Patient states she feels well this morning. Denies fever, chills, nausea, vomiting, abdominal pain, chest pain, tenderness of breath. Patient states slight blood tinged stool yesterday evening. Denies any bright red blood per rectum at discharge. - Review of Systems General: Denies: Fever, Chills Pulmonary: Denies: Shortness of Breath, Cough Cardiovascular: Denies: Chest Pain, Dyspnea on Exertion, Edema Gastrointestinal: Denies: Abdominal Pain, Decreased Appetite, Diarrhea, Hematochezia, Nausea, Vomiting Neurological: Denies: Confusion, Dizziness, Headache Psychiatric: Denies: Confusion - Patient Data Vitals - Most Recent: Last Vital Signs Temp 98.5 F 11/28/20 08:04 Pulse 80 11/28/20 08:52 Resp 20 11/28/20 08:04 BP 137/91 H 11/28/20 08:53 Pulse Ox 93 L 11/28/20 08:04 Weight - Most Recent: 98 kg I&O - Last 24 hours: Intake & Output 11/27/20 11/28/20 11/28/20 22:59 06:59 14:59 Intake Total 650 Output Total 500 Balance 150 Lab Results - Last 24 hrs: Laboratory Results - last 24 hr 11/27/20 11/27/2011/27/21 Range/Units 15:30 15:30 16:59 WBC 8.47 (4.0-11.0) K/uL RBC 4.31 (4.30-5.90) M/uL Hgb 12.7 (12.0-16.0) g/dL Hct 36.8 (36.0-46.0) % MCV 85.4 (80.0-98.0) fL MCH 29.5 (27.0-32.0) pg MCHC 34.5 (31.0-37.0) g/dL RDW Std Deviation 42.1 (28.0-62.0) fl RDW Coeff of Brynn 14 (11.0-15.0) % Plt Count 195 (150-400) K/uL MPV 9.30 (7.40-12.00) fL Neut % (Auto) 69.2 (48.0-80.0) % Lymph % (Auto) 20.5 (16.0-40.0) % [place] % (Auto) 7.6 (0.0-15.0) % Eos % (Auto) 2.5 (0.0-7.0) % Baso % (Auto) 0.2 (0.0-1.5) % Neut # (Auto) 5.9 H (1.4-5.7) K/uL Lymph # (Auto) 1.7 (0.6-2.4) K/uL [place] # (Auto) 0.6 (0.0-0.8) K/uL Eos # (Auto) 0.2 (0.0-0.7) K/uL Baso # (Auto) 0.0 (0.0-0.1) K/uL Nucleated RBC % 0.0 /100WBC Nucleated RBCs # 0 K/uL Sodium 135 L (136-145) mmol/L Potassium 3.9 (3.5-5.1) mmol/L Chloride 98 (98-107) mmol/L Carbon Dioxide 30.8 (21.0-32.0) mmol/L BUN 14 (7.0-18.0) mg/dL Creatinine 0.7 (0.6-1.0) mg/dL Est Cr Clr Drug Dosing 51.59 mL/min Estimated GFR (MDRD) > 60.0 ml/min Glucose 137 H (74-106) mg/dL Calcium 9.0 (8.5-10.1) mg/dL Total Bilirubin 0.6 (0.2-1.0) mg/dL AST 19 (15-37) IU/L ALT 27 (14-63) IU/L Alkaline Phosphatase 81 (46-116) U/L Total Protein 7.5 (6.4-8.2) g/dL Albumin 3.7 (3.4-5.0) g/dL Globulin 3.8 (2.6-4.0) g/dL Albumin/Globulin Ratio 1.0 (0.9-1.6) Urine Color YELLOW Urine Appearance CLEAR Urine pH 6.5 (5.0-8.0) Ur Specific [place] <= 1.005 (1.001-1.035) Urine Protein NEGATIVE (NEGATIVE) mg/dL Urine Glucose (UA) NEGATIVE (NEGATIVE) mg/dL Urine Ketones NEGATIVE (NEGATIVE) mg/dL Urine Occult Blood NEGATIVE (NEGATIVE) Urine Nitrite NEGATIVE (NEGATIVE) Urine Bilirubin NEGATIVE (NEGATIVE) Urine Urobilinogen 0.2 (<2.0) EU/dL Ur Leukocyte Esterase NEGATIVE (NEGATIVE) SARS-CoV-2 RNA (KENDELL) (NEGATIVE) 11/27/20 11/28/20 11/28/20 Range/Units 18:05 05:30 05:30 WBC 7.00 (4.0-11.0) K/uL RBC 3.81 L (4.30-5.90) M/uL Hgb 11.3 L (12.0-16.0) g/dL Hct 32.7 L (36.0-46.0) % MCV 85.8 (80.0-98.0) fL MCH 29.7 (27.0-32.0) pg MCHC 34.6 (31.0-37.0) g/dL RDW Std Deviation 43.1 (28.0-62.0) fl RDW Coeff of Brynn 14 (11.0-15.0) % Plt Count 180 (150-400) K/uL MPV 9.50 (7.40-12.00) fL Neut % (Auto) 67.8 (48.0-80.0) % Lymph % (Auto) 20.4 (16.0-40.0) % [place] % (Auto) 8.6 (0.0-15.0) % Eos % (Auto) 2.6 (0.0-7.0) % Baso % (Auto) 0.6 (0.0-1.5) % Neut # (Auto) 4.8 (1.4-5.7) K/uL Lymph # (Auto) 1.4 (0.6-2.4) K/uL [place] # (Auto) 0.6 (0.0-0.8) K/uL Eos # (Auto) 0.2 (0.0-0.7) K/uL Baso # (Auto) 0.0 (0.0-0.1) K/uL Nucleated RBC % 0.0 /100WBC Nucleated RBCs # 0 K/uL Sodium 137 (136-145) mmol/L Potassium 3.9 (3.5-5.1) mmol/L Chloride 102 (98-107) mmol/L Carbon Dioxide 26.5 (21.0-32.0) mmol/L BUN 14 (7.0-18.0) mg/dL Creatinine 0.7 (0.6-1.0) mg/dL Est Cr Clr Drug Dosing 51.59 mL/min Estimated GFR (MDRD) > 60.0 ml/min Glucose 103 (74-106) mg/dL Calcium 8.2 L (8.5-10.1) mg/dL Total Bilirubin (0.2-1.0) mg/dL AST (15-37) IU/L ALT (14-63) IU/L Alkaline Phosphatase (46-116) U/L Total Protein (6.4-8.2) g/dL Albumin (3.4-5.0) g/dL Globulin (2.6-4.0) g/dL Albumin/Globulin Ratio (0.9-1.6) Urine Color Urine Appearance Urine pH (5.0-8.0) Ur Specific [place] (1.001-1.035) Urine Protein (NEGATIVE) mg/dL Urine Glucose (UA) (NEGATIVE) mg/dL Urine Ketones (NEGATIVE) mg/dL Urine Occult Blood (NEGATIVE) Urine Nitrite (NEGATIVE) Urine Bilirubin (NEGATIVE) Urine Urobilinogen (<2.0) EU/dL Ur Leukocyte Esterase (NEGATIVE) SARS-CoV-2 RNA (KENDELL) NEGATIVE (NEGATIVE) Med Orders - Current: Current Medications Acetaminophen/Codeine Phosphate (Acetaminophen/Codeine 300-30 Mg Tab) 1 tab PO Q4H PRN PRN Reason: Pain Albuterol (Albuterol 8 Gm Inhaler) 0 gm INH Q4H PRN PRN Reason: Shortness of Breath Piperacillin Sod/Tazobactam (Sod 3.375 gm/ Sodium Chloride) 50 mls @ 100 mls/hr IV Q6H [facility] Last Admin: 11/28/20 05:31 Dose: 100 mls/hr Documented by: Lisinopril (Lisinopril 10 Mg Tab) 10 mg PO DAILY [facility] Last Admin: 11/28/20 08:53 Dose: 10 mg Documented by: Metoprolol Succinate (Metoprolol Succinate 50 Mg Tab.Er) 50 mg PO DAILY [facility] Last Admin: 11/28/20 08:52 Dose: 50 mg Documented by: Omeprazole (Omeprazole 20 Mg Cap.Cr) 40 mg PO ACBRK [facility] Last Admin: 11/28/20 08:53 Dose: 40 mg Documented by: Ropinirole HCl (Ropinirole 0.5 Mg Tab) 0.5 mg PO BEDTIME [facility] Last Admin: 11/27/20 22:40 Dose: 0.5 mg Documented by: Sodium Chloride (Sodium Chloride 0.9% 10 Ml Syringe) 10 ml FLUSH ASDIRECTED PRN PRN Reason: Keep Vein Open Last Admin: 11/27/20 15:31 Dose: 10 ml Documented by: Sodium Chloride (Sodium Chloride 0.9% 2.5 Ml Syringe) 2.5 ml FLUSH ASDIRECTED PRN PRN Reason: Keep Vein Open Last Admin: 11/27/20 15:31 Dose: 2.5 ml Documented by: Discontinued Medications Metronidazole 500 mg/ Premix 100 mls @ 100 mls/hr IV ONETIME ONE Stop: 11/27/20 18:52 Last Admin: 11/27/20 18:31 Dose: 100 mls/hr Documented by: Sodium Chloride (Normal Saline) 1,000 mls @ 125 mls/hr IV STAT ONE Stop: 11/28/20 02:53 Last Admin: 11/27/20 19:34 Dose: 125 mls/hr Documented by: Iopamidol (Iopamidol 755 Mg/Ml 500 Ml Multipack Bottle) 100 ml IVPUSH ONETIME STA Stop: 11/27/20 16:47 Last Admin: 11/27/20 16:47 Dose: 100 ml Documented by: - Exam General: Reports: Alert, Oriented Lungs: Reports: Clear to Auscultation, Normal Respiratory Effort, Wheezing Cardiovascular: Reports: Regular Rhythm GI/Abdominal Exam: Soft, Non-Tender, No Distention. No: Guarding Extremities: No Pedal Edema Psy/Mental Status: Reports: Alert <ChrisLamonte Micheline - Last Filed: 11/29/20 21:59> Discharge Summary - Referral to Home Health Primary Care Physician: Lance De Leon MD - Patient Data Vitals - Most Recent: Last Vital Signs Temp 36.9 C 11/28/20 08:04 Pulse 80 11/28/20 08:52 Resp 20 11/28/20 08:04 BP 137/91 H 11/28/20 08:53 Pulse Ox 93 L 11/28/20 08:04 Med Orders - Current: Current Medications Discontinued Medications Acetaminophen/Codeine Phosphate (Acetaminophen/Codeine 300-30 Mg Tab) 1 tab PO Q4H PRN PRN Reason: Pain Albuterol (Albuterol 8 Gm Inhaler) 0 gm INH Q4H PRN PRN Reason: Shortness of Breath Metronidazole 500 mg/ Premix 100 mls @ 100 mls/hr IV ONETIME ONE Stop: 11/27/20 18:52 Last Admin: 11/27/20 18:31 Dose: 100 mls/hr Documented by: Sodium Chloride (Normal Saline) 1,000 mls @ 125 mls/hr IV STAT ONE Stop: 11/28/20 02:53 Last Admin: 11/27/20 19:34 Dose: 125 mls/hr Documented by: Piperacillin Sod/Tazobactam (Sod 3.375 gm/ Sodium Chloride) 50 mls @ 100 mls/hr IV Q6H [facility] Last Admin: 11/28/20 05:31 Dose: 100 mls/hr Documented by: Iopamidol (Iopamidol 755 Mg/Ml 500 Ml Multipack Bottle) 100 ml IVPUSH ONETIME STA Stop: 11/27/20 16:47 Last Admin: 11/27/20 16:47 Dose: 100 ml Documented by: Lisinopril (Lisinopril 10 Mg Tab) 10 mg PO DAILY [facility] Last Admin: 11/28/20 08:53 Dose: 10 mg Documented by: Metoprolol Succinate (Metoprolol Succinate 50 Mg Tab.Er) 50 mg PO DAILY [facility] Last Admin: 11/28/20 08:52 Dose: 50 mg Documented by: Omeprazole (Omeprazole 20 Mg Cap.Cr) 40 mg PO ACBRK [facility] Last Admin: 11/28/20 08:53 Dose: 40 mg Documented by: Ropinirole HCl (Ropinirole 0.5 Mg Tab) 0.5 mg PO BEDTIME [facility] Last Admin: 11/27/20 22:40 Dose: 0.5 mg Documented by: Sodium Chloride (Sodium Chloride 0.9% 10 Ml Syringe) 10 ml FLUSH ASDIRECTED PRN PRN Reason: Keep Vein Open Last Admin: 11/27/20 15:31 Dose: 10 ml Documented by: Sodium Chloride (Sodium Chloride 0.9% 2.5 Ml Syringe) 2.5 ml FLUSH ASDIRECTED PRN PRN Reason: Keep Vein Open Last Admin: 11/27/20 15:31 Dose: 2.5 ml Documented by: - Free Text/Narrative Note: I have seen and examined the patient. I have discussed findings and treatment plan with the resident. I agree with the assessment and plan outlined in the following note.
[2020-11-28 10:41] VITALS: BP 137/91; PULSE 80
== END 2020-11-28 11:50 | disposition home or self-care (01) ==
LOC: MW.ED 12:58 → MW.MS 18:56
PROVIDERS: ADMIT Internal Medicine; ATTEND Internal Medicine
DX: K62.5 Hemorrhage of anus and rectum (principal); I10 Essential (primary) hypertension; J45.909 Unspecified asthma, uncomplicated; E66.9 Obesity, unspecified; K52.9 Noninfective gastroenteritis and colitis, unspecified; R12 Heartburn; K21.9 Gastro-esophageal reflux disease without esophagitis; G25.81 Restless legs syndrome; Z88.8 Allergy status to other drugs, medicaments and biological substances; Z88.5 Allergy status to narcotic agent; Z79.899 Other long term (current) drug therapy; Z79.82 Long term (current) use of aspirin; Z20.822 Contact with and (suspected) exposure to COVID-19
CPT/HCPCS: 36415; 74177; 80048; 80053; 81003; 85025; A9270; J2543; J3490; J7030; Q9967; U0002; 96365; 96367; 99285-25; G0378

== ENCOUNTER 2021-01-11 06:39 | Day surgery (SDC) | payer MEDICARE, BC ==
[~2021-01-11 06:39] MED LIST changes: -Lidocaine 2% 5 ML SDV ONE; -Propofol 200 MG/20 ML SDV ONE; +Sodium Chloride 0.9% 20 ML SDV IV PRN; -fentaNYL 100 MCG/2 ML SDV ONE
[2021-01-11] MEDS ORDERED: Propofol 200 MG/20 ML SDV ONE ×2 (07:30→08:25)
--- NOTE | 2021-01-11 07:35 | PCM.PREANE ---
Preanesthetic Assessment - Anesthesia/Transfusion/Family Hx Anesthesia History: Prior Anesthesia Without Reaction Transfusion History: Unknown - Review of Systems General: No Symptoms Pulmonary: No Symptoms Cardiovascular: No Symptoms Gastrointestinal: No Symptoms Neurological: No Symptoms Other: Reports: None - Physical Assessment NPO Status Date: 01/11/21 NPO Status Time: 00:00 Vital Signs: Last Vital Signs Temp 96.1 F L 01/11/21 07:05 Pulse 86 01/11/21 07:05 Resp 16 01/11/21 07:05 BP 132/76 01/11/21 07:25 Pulse Ox 97 01/11/21 07:05 Height: 5 ft 1 in Weight: 193 lb ASA Class: 3 Mental Status: Alert & Oriented x3 Airway Class: Mallampati = 3 Dentition: Reports: Normal Dentition, Bridge, Implants ROM/Head Extension: Full Lungs: Clear to Auscultation, Normal Respiratory Effort Cardiovascular: Regular Rate, Regular Rhythm - Allergies Allergies/Adverse Reactions: Allergies Allergy/AdvReac Type Severity Reaction Status Date / Time acetaminophen Allergy Agitation Verified 01/05/21 10:12 adhesive tape Allergy Redness Verified 01/05/21 10:12 amitriptyline Allergy restlessnes Verified 01/05/21 10:12 s cefuroxime Allergy did not Verified 01/05/21 10:12 work clarithromycin Allergy Itching Verified 01/05/21 10:12 cyclobenzaprine Allergy Cannot Verified 01/05/21 10:12 Remember diphenhydramine HCl Allergy Agitation Verified 01/05/21 10:12 [From Benadryl] gabapentin Allergy Cannot Verified 01/05/21 10:12 Remember hydromorphone Allergy Rash Verified 01/05/21 10:12 levofloxacin [From Levaquin] Allergy chest Verified 01/05/21 10:12 tightness/diarrhea montelukast Allergy "makes JERONIMO Verified 01/05/21 10:12 more severe" morphine Allergy "makes my Verified 01/05/21 10:12 skin crawl" oxycodone [Oxycodone] Allergy Cannot Verified 01/05/21 10:12 Remember tramadol Allergy rash/itch Verified 01/05/21 10:12 SMZ-TMP Allergy "my body Uncoded 01/05/21 10:12 is resistant to it" - Acknowledgements Anesthesia Type Planned: General Anesthesia Pt an Appropriate Candidate for the Planned Anesthesia: Yes Alternatives and Risks of Anesthesia Discussed w Pt/Guardian: Yes Pt/Guardian Understands and Agrees with Anesthesia Plan: Yes PreAnesthesia Questionnaire - Past Health History Medical/Surgical History: Denies Medical/Surgical History HEENT History: Reports: Cataract, Other (See Below) Other HEENT History: wears glasses, top and bottom partial dentures Cardiovascular History: Reports: Hypertension, Other (See Below) Other Cardiovascular History: varicose veins, hole in heart (dx 2020) Respiratory History: Reports: Asthma Other Respiratory History: "mild asthma"- uses inhaler BID and occasionally a rescue inhaler Gastrointestinal History: Reports: Diverticulosis, GERD Other Gastrointestinal History: epigastric pain, recent hospitalization for colitis Genitourinary History: Reports: None CLINICAL SUPPORT ASSOCIATE History: Reports: Musculoskeletal History: Reports: Back Pain, Chronic, Fracture, Neck Pain, Chronic, Osteoarthritis, Other (See Below) Other Musculoskeletal History: DDD, RAPHAEL's to neck, hx of fx fingers Neurological History: Reports: Migraines Other Neuro History: restless legs syndrome Psychiatric History: Reports: Anxiety Endocrine/Metabolic History: Reports: Obesity/BMI 30+ Hematologic History: Reports: Other (See Below) Other Hematologic History: transfusion unknown, may have had one after vaginal delivery Immunologic History: Reports: None Oncologic (Cancer) History: Reports: None Dermatologic History: Reports: None - Infectious Disease History Infectious Disease History: Reports: Chicken Pox, Measles, Novel Coronavirus - Past Surgical History Head Surgeries/Procedures: Reports: None HEENT Surgical History: Reports: Cataract Surgery, Naso-Sinus Surgery, Oral Surgery, Tonsillectomy, Other (See Below) Other HEENT Surgeries/Procedures: dental implant, Blepharoplasty Cardiovascular Surgical History: Reports: None Respiratory Surgical History: Reports: None GI Surgical History: Reports: Cholecystectomy, Colonoscopy Female Surgical History: Reports: Breast Biopsy, Section, D&C, Hysterectomy Neurological Surgical History: Reports: C-Spine, Discectomy Other Neurological Surgeries/Procedures: neck surgery Musculoskeletal Surgical History: Reports: Arthroscopic Knee, Carpal Tunnel, Joint Replacement, Knee Replacement, Shoulder Surgery, Other (See Below) Other Musculoskeletal Surgeries/Procedures:: salvatore knee replacements, salvatore shoulder replacements , Left foot surgery, neck surgery Oncologic Surgical History: Reports: Biopsy of Breast - SUBSTANCE USE Tobacco Use Status *Q: Never Tobacco User Recreational Drug Use History: No - HOME MEDS Home Medications: Home Meds Metoprolol Succinate 25 mg PO BID 02/10/17 [History] Acetaminophen with Codeine [Acetaminophen-Cod #3] 1 tab PO TID PRN 04/13/18 [History] Albuterol [Ventolin HFA] 1 - 2 puff INH Q4H PRN 04/13/18 [History] Cholecalciferol (Vitamin D3) [Vitamin D3] 1,000 units PO DAILY 04/13/18 [History] Diclofenac Sodium [Voltaren 1% Gel] 1 applic TOP TID PRN 04/13/18 [History] Magnesium Oxide 250 mg PO DAILY 04/13/18 [History] Melatonin 5 mg PO BEDTIME 04/13/18 [History] Multivitamin [Multivitamins] 1 tab PO DAILY 04/13/18 [History] Potassium Gluconate [Potassium] 99 mg PO DAILY 04/13/18 [History] Sucralfate 1 gm PO TIDMEALS 04/13/18 [History] Zinc Gluconate [Zinc] 50 mg PO DAILY 04/13/18 [History] rOPINIRole [Requip] 0.5 mg PO BEDTIME 04/13/18 [History] [place]-3 Fatty Acids/Fish Oil [Fish Oil 1,000 mg Softgel] 2,000 unit PO BID 03/29/19 [History] Omeprazole 40 mg PO DAILY 03/29/19 [History] clonazePAM [Clonazepam] 1 mg PO BEDTIME 11/27/20 [History] lisinopriL [Lisinopril] 10 mg PO BEDTIME 11/27/20 [History] Ascorbic Acid [Vitamin C] 500 mg PO BID 01/05/21 [History] Aspirin 650 mg PO BEDTIME 01/05/21 [History] Baclofen 10 mg PO TID PRN 01/05/21 [History] Cranberry Conc/Ascorbic Acid [Cranberry Plus Vitamin C Sftgl] 1 cap PO DAILY 01/05/21 [History] Furosemide 20 - 40 mg PO ASDIRECTED PRN 01/05/21 [History] Gelatin 600 mg PO DAILY 01/05/21 [History] Turmeric Root Extract [Turmeric Curcumin] 1 cap PO DAILY 01/05/21 [History] Vitamin B Complex 1 cap PO DAILY 01/05/21 [History] hydrOXYzine HCL [Hydroxyzine HCl] 25 mg PO QID PRN 01/05/21 [History] - CURRENT (IN HOUSE) MEDS Current Meds: Current Medications Lactated Ringer's (Ringers, Lactated) 1,000 mls @ 125 mls/hr IV ASDIRECTED [facility] Last Admin: 01/11/21 07:28 Dose: 125 mls/hr Documented by: Sodium Chloride (Sodium Chloride 0.9% 10 Ml Syringe) 10 ml FLUSH ASDIRECTED PRN PRN Reason: Keep Vein Open Sodium Chloride (Sodium Chloride 0.9% 2.5 Ml Syringe) 2.5 ml FLUSH ASDIRECTED PRN PRN Reason: Keep Vein Open Sodium Chloride (Sodium Chloride 0.9% 10 Ml Syringe) 10 ml FLUSH ASDIRECTED PRN PRN Reason: Keep Vein Open Sodium Chloride (Sodium Chloride 0.9% 2.5 Ml Syringe) 2.5 ml FLUSH ASDIRECTED PRN PRN Reason: Keep Vein Open Sodium Chloride (Sodium Chloride 0.9% 20 Ml Sdv) 10 ml IV ASDIRECTED PRN PRN Reason: IV Use Discontinued Medications Propofol (Propofol 200 Mg/20 Ml Sdv) Confirm Administered Dose 1,600 mg .ROUTE .STK-MED ONE Stop: 01/11/21 07:31
[2021-01-11] MEDS ORDERED: fentaNYL 100 MCG/2 ML SDV ONE (07:39)
--- NOTE | 2021-01-11 08:39 | PCM.POSTAN ---
POST ANESTHESIA ASSESSMENT - MENTAL STATUS Mental Status: Alert, Oriented - VITAL SIGNS Vital Signs: Last Vital Signs Temp 96.1 F L 01/11/21 07:05 Pulse 86 01/11/21 07:05 Resp 16 01/11/21 07:05 BP 132/76 01/11/21 07:25 Pulse Ox 97 01/11/21 07:05 - RESPIRATORY Respiratory Status: Respiratory Rate WNL, Airway Patent, O2 Saturation Stable - CARDIOVASCULAR CV Status: Pulse Rate WNL, Blood Pressure Stable - GASTROINTESTINAL GI Status: No Symptoms - POST OP HYDRATION Hydration Status: Adequate & Stable
[2021-01-11 08:40] VITALS: PULSE 72
--- NOTE | 2021-01-11 08:40 | PCM48HPAN ---
Post Anesthesia Note - EVALUATION WITHIN 48HRS OF ANESTHETIC Vital Signs in Normal Range: Yes Patient Participated in Evaluation: Yes Respiratory Function Stable: Yes Airway Patent: Yes Cardiovascular Function Stable: Yes Hydration Status Stable: Yes Pain Control Satisfactory: Yes Nausea and Vomiting Control Satisfactory: Yes Mental Status Recovered: Yes Vital Signs: Last Vital Signs Temp 96.1 F L 01/11/21 07:05 Pulse 86 01/11/21 07:05 Resp 16 01/11/21 07:05 BP 132/76 01/11/21 07:25 Pulse Ox 97 01/11/21 07:05
[2021-01-11 08:58] VITALS: BP 134/75
--- NOTE | 2021-01-11 14:42 | PCM.OPNOTE ---
- General Post-Op/Procedure Note Date of Surgery/Procedure: 01/11/21 Operative Procedure(s): Incomplete colonoscopy Findings: Diverticulosis and tortuous colon. Narrowed area from 30-40 cm that I was unable to traverse. Rectal and sigmoid colon biopsy Pre Op Diagnosis: Hematochezia, colitis Post-Op Diagnosis: Hematochezia, colitis, diverticulosis Anesthesia Technique: [facility] [place] Primary Surgeon: Cookie Enriquez Condition: Good Free Text/Narrative:: Intake & Output 01/10/21 01/11/21 01/11/21 22:59 06:59 14:59 Intake Total 500 Balance 500
--- NOTE | 2021-01-12 10:11 | OR ---
SURGEON: COOKIE ENRIQUEZ MD DATE OF PROCEDURE: 01/11/2021 PREOPERATIVE DIAGNOSES: Hematochezia, colitis. POSTOPERATIVE DIAGNOSES: Hematochezia, colitis, diverticulosis. PROCEDURE PERFORMED: Diagnostic colonoscopy, incomplete. PRIMARY SURGEON: Cookie Enriquez MD ANESTHESIA: General. INSTRUMENT USED: Olympus colonoscope. EXTENT OF EXAMINATION: 30 to 40 cm past the anal verge. PREPARATION: Good. LIMITATIONS: Narrowing of the colon. COMPLICATIONS: None. INDICATIONS: The patient is a 75-year-old female who was hospitalized with hematochezia. CT scan showed thickening of the colon along the splenic flexure. She was treated for colitis. She is here for diagnostic colonoscopy as a part of her followup from this hospitalization. I explained the procedure, expected perioperative course, the risks. She verbalized understanding and wishes to proceed. PROCEDURE IN DETAIL: The patient was brought to the endoscopy suite and placed in a left lateral decubitus position. A time-out was completed verifying the patient's name, age, date of , allergies, and procedure to be performed. General anesthesia was induced and continuous oxygen was provided via face mask throughout the procedure. After adequate anesthesia was achieved, a digital rectal exam was performed. This exam revealed mildly enlarged hemorrhoids. A well-lubricated colonoscope was inserted in the rectum and advanced under direct visualization. The patient had diverticula within the sigmoid colon. Her sigmoid colon was tortuous. About 30 to 40 cm within the colon, the patient was noted to have a narrowed area. It was unclear if this was due to inflammation or a tight turn in the patient's colon. I attempted to apply pressure to the patient's abdomen. We performed multiple position changes. Unfortunately, I could not pass through this area. A photograph of it was taken. A biopsy was then taken in the area as well. Scope was then removed while examining the color, texture, anatomy, and integrity of the colonic mucosa I could see. Again, she had scattered diverticula throughout the sigmoid colon. A random biopsy was taken in the rectum and sent to pathology for histologic review as well. The scope was retroflexed within the rectum to allow visualization of the anal canal opening. This appeared normal and a photograph was taken. The scope was straightened out and fully withdrawn. The patient tolerated the procedure well and was transferred to the PACU in stable condition. ENDOSCOPIC DIAGNOSES: 1. Diverticulosis. 2. History of hematochezia and colitis. 3. Narrowing of the sigmoid colon. RECOMMENDATIONS: I visited with the patient in the postoperative care area. I explained my difficulties during the case. I will schedule the patient for an outpatient barium enema in the near future to further assess the colon. CANDICE MAKI /[id number]
== END 2021-01-11 09:21 | disposition home or self-care (01) ==
LOC: MW.SDS 06:39
PROVIDERS: ATTEND Surgery
DX: K57.30 Diverticulosis of large intestine without perforation or abscess without bleeding (principal); K52.9 Noninfective gastroenteritis and colitis, unspecified; F41.9 Anxiety disorder, unspecified; J45.909 Unspecified asthma, uncomplicated; I10 Essential (primary) hypertension; E66.9 Obesity, unspecified; K21.9 Gastro-esophageal reflux disease without esophagitis; Z86.73 Personal history of transient ischemic attack (TIA), and cerebral infarction without residual deficits; Z88.8 Allergy status to other drugs, medicaments and biological substances; Z88.5 Allergy status to narcotic agent; Z79.899 Other long term (current) drug therapy; Z79.82 Long term (current) use of aspirin; Z98.890 Other specified postprocedural states; Z90.49 Acquired absence of other specified parts of digestive tract
CPT/HCPCS: 45331; J2704; J3010; J7120; 00811; 99100